=== PATIENT | female | born 1950 | race Two or more races ===

== ENCOUNTER 2025-01-07 19:48 | Inpatient (IN) | payer MEDICARE, BC, SELFPAY ==
[2025-01-07 19:50] VITALS: PULSE 84; RESP 100; RESP 20
--- NOTE | 2025-01-07 19:50 | EKG_ITS ---
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
--- NOTE | 2025-01-07 19:50 | XR_ITS ---
Examination: CTA carotids with intravenous contrast CTA brain, head with intravenous contrast. 2-D sagittal, coronal reconstructions. 3-D reconstructions. Exam date and time: January 07, 2025 1957 hours INDICATIONS: Stroke alert, onset focal neurologic deficit today CTDI: vol (mGy) 11.6 DLP: (mGycm) 450 Technique: Multiple CTA axial brain, head carotid images post intravenous contrast injection 100 cc, Isovue-370. 2-D sagittal, coronal reconstructions. 3-D reconstructions, 3-D post processing including vascular maximum intensity projection images. Low dose protocols were performed. One or more of the following dose reduction techniques were used; automated exposure control, adjustment of the mA and/or KV according to patient size, use of iterative reconstruction technique. Findings: No significant common carotid carotid bifurcation or internal carotid artery stenoses Dominant left vertebral artery in the neck with no critical stenoses Intracranial vertebral arteries, posterior cerebral arteries artery fill with no occlusions Petrous, juxtasellar, supraclinoid portions internal carotid arteries, M1 segments middle cerebral arteries middle cerebral artery trifurcation vessels as well as anterior cerebral arteries fill with no occlusions IMPRESSION: No significant arterial stenoses No cerebral large vessel arterial occlusions or thrombus
--- NOTE | 2025-01-07 19:50 | XR_ITS ---
Examination: CT brain head without contrast. 2-D sagittal coronal reconstructions Date and time of exam:January 07, 20251953 hours Comparison 04/24/2023 INDICATIONS: Stroke alert, onset altered mental status weakness confusion today, history brain tumor CTDI: vol (mGy):46.7 DLP: (mGycm):9 Technique: Multiple CT axial sections of the brain have been obtained, 5 mm slice thickness. Contrast has not been administered. 2-D sagittal, coronal reconstructions have been obtained Low dose protocols were performed. One or more of the following dose reduction techniques were used; automated exposure control, adjustment of the mA and/or KV according to patient size, use of iterative reconstruction technique. Findings: Left occipital craniotomy defect with encephalomalacia left occipital lobe and mild ipsilateral ventricular dilatation No acute hemorrhage or effacement cortical sulcal markings No mass effect IMPRESSION: No interval acute hemorrhage mass effect or midline shift
[2025-01-07 19:55] VITALS: BP 193/84; PULSE 62; RESP 16; O2SAT 99
--- NOTE | 2025-01-07 20:00 | PD.EDNEURO ---
Neuro Symptoms Deficit-RME/HPI General Chief Complaint: Neuro Symptoms/Deficit Stated Complaint: POSSIBLE STROKE Time Seen by Provider: 01/07/25 19:50 Arrival date/time: 01/07/25 19:48 RME / HPI RME / HPI Narrative: Dr. Maier?s Main ED Evaluation: 74yo female with a history of glioblastoma, HTN BIBA from home presents to the ED for a chief complaint of neurological symptoms. Patient was seen by me immediately upon arrival at 1948. Per EMS, patient's LKWT is 1730, at which time patient fell asleep and took a nap. EMS endorses family was checking on the patient and found her to be nonverbal and unable to ambulate. EMS endorses the patient can normally communicate and ambulate normally. Full ROS is unobtainable due to the patient being nonverbal. Related Data Home Medications ?Medication ?Instructions ?Recorded ?Confirmed escitalopram oxalate 10 mg tablet 10 mg PO QDAY 09/24/20 04/25/23 lisinopril 5 mg tablet 5 mg PO QDAY High Blood Pressure 09/24/20 04/25/23 Previous Rx's ?Medication ?Instructions ?Recorded pantoprazole 40 mg granules 40 mg PO QDAY 30 days #30 ea 04/27/23 delayed-release for susp in packet (Protonix) Allergies Allergy/AdvReac Type Severity Reaction Status Date / Time Penicillins Allergy Intermediate Hives Verified 04/24/23 13:34 Review of Systems Review of Systems ROS Unobtainable: unobtainable due to medical condition Past Medical History Past Medical History NEUROLOGIC: Negative Neurological Disorders or Seizures CARDIAC: Positive Hypertension; Negative Cardiac Disorders, Hypercholesterolemia or Congestive Heart Failure RESPIRATORY: Negative Chronic Obstructive Pulmonary Disease (COPD) or Asthma GASTROINTESTINAL: Positive Gastrointestinal Disorders and Gastroesophageal Reflux Disease GENITOURINARY: Negative Genitourinary Disorders or Renal Disease MUSCULOSKELETAL: Negative Musculoskeletal Disorders or Arthritis ENDOCRINE: Negative Endocrine Disorders, Diabetes Mellitus Type 1 or Diabetes Mellitus Type 2 HEMATOLOGIC: Negative Blood Disorders or Sickle Cell Disease PSYCHO/SOCIAL: Positive Depression and Anxiety OTHER HISTORY: Negative Autoimmune Disease, Blood Transfusions, Anesthesia Reactions, Chicken Pox, Measles, Mumps or Cancer Family History FAMILY HISTORY: Positive Family Cardiac Disorders; Negative Family Anesthesia Reaction Surgical History SURGICAL: Positive Tubal Ligation; Negative Cardiac Surgery, Endocrine Surgery, Ear Surgery, Abdominal Surgery, Nephrectomy or Joint Replacement Social History SMOKING STATUS: Never smoker SUBSTANCE USE: does not use 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 HEENT: Normocephalic, atraumatic; pupils equal, round, reactive to light; EOMI; mucous membranes pink, moist; oropharynx clear NECK: Supple LUNGS: CTABL; no wheezes, no rales, no rhonchi HEART: Regular rate, regular rhythm; normal S1, S2; no murmurs ABDOMEN: non distended; normal BS; soft, no tenderness, no guarding, no rebound; no masses, no organomegaly, no hernia BACK: no CVA tenderness EXTREMITIES: atraumatic; no edema NEUROLOGIC: awake; nonverbal; not moving any of her extremities; unable to assess sensory deficits PSYCHIATRIC: appropriate mood and affect SKIN: warm, dry, normal color; no rashes Course Quality Measures none Orders Category Date Time Status Bedside Blood Glucose NOW Care 01/07/25 19:50 Active Ship Rigger Apprentice NOW Care 01/07/25 19:50 Active Continuous Pulse Oximetry NOW Care 01/07/25 19:50 Completed EKG (ED ONLY) *Do not use* NOW Care 01/07/25 19:50 Completed In and Out Catheter NEEDED Care 01/07/25 19:50 Active Insert IV NOW Care 01/07/25 19:50 Active NIH Stroke Scale now Care 01/07/25 19:50 Active NPO NOW Care 01/07/25 19:50 Active Nurse Swallow Screen x1 Care 01/07/25 19:50 Active Consult to Neurology / Tele-Neurology Routine Cons 01/07/25 19:[address] angio stroke protocol Stat Exams 01/07/25 19:[address] stroke protocol Stat Exams 01/07/25 19:50 Completed EKG (ED Only) Stat Exams 01/07/25 19:50 Draft Alcohol, Blood Medical Stat Lab 01/07/25 20:00 Completed CBC Stat Lab 01/07/25 20:00 Completed Comprehensive Metabolic Panel Stat Lab 01/07/25 20:00 Completed Drug Screen,Urine Stat Lab 01/07/25 20:31 Completed Magnesium Stat Lab 01/07/25 20:00 Completed Partial Thromboplastin Time Stat Lab 01/07/25 20:00 Completed Prothrombin Time with INR Stat Lab 01/07/25 20:00 Completed Troponin I Stat Lab 01/07/25 20:00 Completed Urinalysis Stat Lab 01/07/25 20:31 Completed Urine Culture Stat Lab 01/07/25 20:31 Received Aspirin Supp Med 01/07/25 21:47 Discontinued 300 mg NH X1 ONE cefTRIAXone/D5w 1gm IV premix [Rocephin/D5w 1gm IV Med 01/07/25 21:18 Discontinued premix] 1 gm in 50 ml IV X1 levETIRAcetam INJ [Keppra Inj] Med 01/07/25 20:21 Discontinued 1,000 mg IVP X1 ONE Oxygen Delivery NOW RT 01/07/25 19:50 Active Vital Signs Vital signs: Vital Signs Pulse Rate 84 01/07/25 19:50 Respiratory Rate 20 01/07/25 19:50 Neuro Symptoms / Deficit MDM Narrative MDM Narrative:: Scribe Attestation: 01/07/25 - Ander, Kortney Maier, am scribing for and in the presence of Dr. Maier. I saw the patient at 1948. Patient was immediately sent to CT. 2010: Patient is AAO to self and follows commands. No motor deficits noted, but I am unable to assess sensory deficits. Unable to completely participate in the exam, but seems to be coming to her senses. 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 He states the patient is on Keppra 500mg BID. 2019: Discussed case with Dr. Steve from teleneurology regarding consultation. Discussed patients ED course, exam findings, labs, and radiology results. Does not recommend tPA due to the patient having a glioblastoma and having rapidly resolving symptoms. Feels the patient may have been postictal. 7: Discussed case with Dr. Steve from teleneurology regarding consultation. Recommends aspirin at this time. States the CTA is negative for LVO. Recommends admitting the patient for MRI and EEG. 2220: On re-examination, patient has expressive aphasia and is now more awake. 2222: Discussed case with the resident physician, attending Dr. Roman from Hospitalist service regarding admission. Discussed patients ED course, exam findings, labs, and radiology results. The Hospitalist agrees to accept the patient for admission. Patient data External records reviewed:: [facility] previous records (Per chart review, patient was admitted here on 04/24/23 for acute CVA.) Clinical information provided by:: EMS Social determinants that could affect healthcare access:: none Patient has the following chronic illnesses:: glioblastoma, HTN How is presenting disease/condition affected by chronic disease/condition?: uneffected by Evaluation data The following diagnostics were reviewed and interpreted by me:: lab results, radiology exam(s) and EKG tracing(s) Lab and/or radiology exams considered but not ordered:: none Interpretation Summary: CBC normal, PT/INR/PTT normal, CMP normal, UA positive for UTI, UDS and Blood Alcohol negative. EKG done at 2038, sinus bradycardia, rate of 59, normal axis, no ectopy, no acute ischemia, according to my interpretation. [place] [facility] Report Signed Patient: EULOGIO FLETCHER Record#: [id number] Birthdate: 1950 Age/Sex: 74 / F Location: [facility] Attending Dr: Ordering Physician: Ravin Maier MD Date of Service: 01/07/25 Procedure(s): CT stroke protocol Accession Number(s): [id number] cc: Ugo Georges MD; Ravin Maier MD~ Examination: CT brain head without contrast. 2-D sagittal coronal reconstructions Date and time of exam:January 07, 20251953 hours Comparison 04/24/2023 INDICATIONS: Stroke alert, onset altered mental status weakness confusion today, history brain tumor CTDI: vol (mGy):46.7 DLP: (mGycm):9 Technique: Multiple CT axial sections of the brain have been obtained, 5 mm slice thickness. Contrast has not been administered. 2-D sagittal, coronal reconstructions have been obtained Low dose protocols were performed. One or more of the following dose reduction techniques were used; automated exposure control, adjustment of the mA and/or KV according to patient size, use of iterative reconstruction technique. Findings: Left occipital craniotomy defect with encephalomalacia left occipital lobe and mild ipsilateral ventricular dilatation No acute hemorrhage or effacement cortical sulcal markings No mass effect IMPRESSION: No interval acute hemorrhage mass effect or midline shift Dictated By: Ugo Georges MD Signed By: <Electronically signed by Ugo Georges MD in OV> 01/07/251958 [place] [facility] Report Signed Patient: EULOGIO FLETCHER Record#: [id number] Birthdate: 1950 Age/Sex: 74 / F [facility] Attending Dr: Ordering Physician: Ravin Maier MD Date of Service: 01/07/25 Procedure(s): CT angio stroke protocol Accession Number(s): [id number] cc: Ugo Georges MD; Ravin Maier MD~ Examination: CTA carotids with intravenous contrast CTA brain, head with intravenous contrast. 2-D sagittal, coronal reconstructions. 3-D reconstructions. Exam date and time: January 07, 20251956 hours INDICATIONS: Stroke alert, onset focal neurologic deficit today CTDI: vol (mGy) 11.6 DLP: (mGycm) 450 Technique: Multiple CTA axial brain, head carotid images post intravenous contrast injection 100 cc, Isovue-370. 2-D sagittal, coronal reconstructions. 3-D reconstructions, 3-D post processing including vascular maximum intensity projection images. Low dose protocols were performed. One or more of the following dose reduction techniques were used; automated exposure control, adjustment of the mA and/or KV according to patient size, use of iterative reconstruction technique. Findings: No significant common carotid carotid bifurcation or internal carotid artery stenoses Dominant left vertebral artery in the neck with no critical stenoses Intracranial vertebral arteries, posterior cerebral arteries artery fill with no occlusions Petrous, juxtasellar, supraclinoid portions internal carotid arteries, M1 segments middle cerebral arteries middle cerebral artery trifurcation vessels as well as anterior cerebral arteries fill with no occlusions IMPRESSION: No significant arterial stenoses No cerebral large vessel arterial occlusions or thrombus Dictated By: Ugo Georges MD Signed By: <Electronically signed by Ugo Georges MD in OV> 01/07/252109 Medications / Prescriptions Medications or Prescriptions considered but not ordered:: none Medication administrations:: Medication Administration History Discontinued Medications Aspirin (Aspirin 300 Mg Supp) 300 mg NH X1 ONE Stop: 01/07/25 21:48 Ceftriaxone Sodium/Dextrose (Rocephin/D5w 1gm Iv Premix) 1 gm in 50 mls @ 100 mls/hr IV X1 ONE Stop: 01/07/25 21:47 Last Infusion: 01/07/25 22:18 Dose: Infused Documented By: Admin: 01/07/25 21:48 Dose: 100 mls/hr Documented By: ER Levetiracetam (Levetiracetam Inj 100 Mg/Ml Vial 5ml) 1,000 mg IVP X1 ONE Stop: 01/07/25 20:22 Last Admin: 01/07/25 21:06 Dose: 1,000 mg Documented By: ER see above Consultations Consultation(s) initiated? (list below): Yes Diagnosis Neuro Differential Diagnosis: other (ICH, hemorrhagic CVA, ischemic CVA, postictal with unseen seizure, AMS) Most likely diagnosis given after review of the tests above:: CVA Admission Indicated Admission indicated?: indicated Admission Request Was there a request for admission?: Yes Admission Attestation Admission request attestation: Discussed case with [] from Hospitalist service regarding admission. Discussed patients ED course, exam findings, labs, and radiology results. The Hospitalist [agrees,declines] to accept the patient for admission. Disposition Plan Disposition Plan: Admit Critical Care Time Critical Care Time Critical Care Time: Yes Total Critical Care Time (min.): 50 Attestation: The high probability of sudden, clinically significant deterioration in the patient?s condition required the highest level of my preparedness to intervene urgently. The services I provided to this patient were to treat and/or prevent clinically significant deterioration. Services included the following: chart data review, reviewing nursing notes and/or old charts, documentation time, legal consultant collaboration regarding findings and treatment options, medication orders and management, direct patient care, vital sign assessments and ordering, interpreting and reviewing diagnostic studies and lab tests. Aggregate critical care time includes only time during which I was engaged in work directly related to the patient?s care, as described above, whether at bedside or elsewhere in the Emergency Department. It did not include time spent performing other reported procedures or the services of residents, students, nurses or physician assistants. Discharge Plan Plan Patient Disposition: Admit Acute Care w/in Hospital Prescriptions/Referrals Prescriptions/Med Rec: No Action lisinopril 5 mg tablet 5 mg PO QDAY Patient Comments: TAKE 1 TABLET BY MOUTH EVERY DAY escitalopram oxalate 10 mg tablet 10 mg PO QDAY Patient Comments: TAKE 1 TABLET BY MOUTH EVERY DAY pantoprazole [Protonix] [address] for susp in packet 40 mg PO QDAY 30 Days Qty: 30 1RF Referrals: Evelio Tineo MD [Primary Care Provider] - In 1 week Problem List Clinical Impression: Acute cerebrovascular accident (CVA) Patient/Caregiver Discharge Instructions Print Language: Nicaraguan Stand Alone Forms: [facility] Award Info., Patient Portal Info Letter
[2025-01-07 20:12] VITALS: BP 171/78; PULSE 64; RESP 18; TEMP 36.4; O2SAT 97
[2025-01-07 20:19] LABS: Basophils % (Auto) 1 % (0-2.5); Eosinophils % (Auto) 1 % (0-10); Hematocrit 37.7 % (36.0-46.0); Hemoglobin 12.4 g/dL (12.0-16.0); Immature Granulocytes % (Auto) 0 % (0-0); Immature Granulocytes Auto 0.02 Thou/mm3 (0.00-0.00); Lymphocytes # (Auto) 0.6 Thou/mm3 (1.0-4.8); Lymphocytes % (Auto) 12 % (10-50); Mean Corpuscular HGB Conc 32.9 g/dl (31.0-37.0); Mean Corpuscular Hemoglobin 28.7 pg (25.0-35.0); Mean Corpuscular Volume 87 fL (80-100); Monocytes # (Auto) 0.3 Thou/mm3 (0.0-0.8); Monocytes % (Auto) 6 % (0-12); Neutrophils # (Auto) 4.4 Thou/mm3 (1.8-7.7); Neutrophils % (Auto) 81 % (37-80); Nucleated Red Blood Cell % 0 /100 WBC (0); Platelet Count 165 Thou/mm3 (140-440); RDW Standard Deviation 45.1 fL (36.4-46.3); Red Blood Count 4.32 Miln/mm3 (4.00-5.20); White Blood Count 5.4 Thou/mm3 (3.6-11.0)
--- NOTE | 2025-01-07 20:24 | ESCONSULT_ITS ---
Tele Neuro Consultation Consultation Date 01/07/25 Most Recent Vital Signs Last Vital Signs Pulse 84 01/07/25 19:50 Resp 20 01/07/25 19:50 Consultation Narrative [facility] Tele[facility]urology Consult Services Patient Name:???Lindy King Date of :???1950 Identification Number:??? Date of Service:???01/07/2025 19:48:07 Diagnosis:?R47.01 - Aphasia Impression: ?74-year-old female With history of reported Left occipital intraparenchymal brain tumor (Reportedly glioblastoma), depression, anxiety, History of seizure disorder, On Keppra 500 mg twice dailywho apparently was in her usual state of health when she took a nap earlier today and upon awakening, patient was nonverbal, unable to ambulate.. EMS question some left-sided weakness initially.No seizure activity was noted. ?Examination reveals patient is awake, globally aphasic, does not follow commands well, no comprehensible speech but may have some vocal utterances. There is questionable left facial asymmetry. No obvious focal drift in either arm or leg. NIHSS = 8. CT head reveals no bleed or acute findings. Postoperative changes and encephalomalacia in left occipital region from possible brain tumor resection. We will proceed with stat CTA of head and neck and involve JARVIS if there is LVO. ?Evaluate for possible acute CVA, but also suspect this could have been an unwitnessed seizure with postictal state as potential cause for her presentation. Suggest further evaluation and management ? ?Addendum: Reportedly patient is starting to improve significantly beginning to speak , according to ER physician after I saw her. Our recommendations are outlined below. Recommendations: ? Stroke/Telemetry Floor ? Neuro Checks (Q2) ? Bedside Swallow Eval ? DVT Prophylaxis ? IV Fluids, Normal Saline ? Head of Bed 30 Degrees ? Euglycemia and Avoid Hyperthermia (PRN Acetaminophen) ? Initiate or continue Aspirin 325 MG daily ? Antihypertensives PRN if Blood pressure is greater than 220/120 or there is a concern for End organ damage/contraindications for permissive HTN. If blood pressure is greater than 220/120 give labetalol PO or IV or Vasotec IV with a goal of 15% reduction in BP during the first 24 hours. ?Stroke risk factor modification ?Stroke education. ?Suggest MRI brain to evaluate for possible CVA ?Suggest EEG ?Seizure precaution. ?Keppra 1 g IV now ordered. ?Suggest increasing Keppra to 1 g IV every 12 hours for now given concern for possibility of unwitnessed seizure. Sign Out: ? Discussed with Emergency Department Provider Metrics: Last Known Well: 01/07/2025 17:30:00 Dispatch Time: 01/07/2025 19:48:06 Arrival Time: 01/07/2025 19:50:00 Initial Response Time: 01/07/2025 19:51:18Symptoms: woke from nap, nonverbal, unable to ambulate , left weakness ?. Initial patient interaction: 01/07/2025 19:56:46 NIHSS Assessment Completed: 01/07/2025 20:04:45Patient is not a candidate for Thrombolytic. Thrombolytic Medical Decision: 01/07/2025 20:04:45Patient was not deemed candidate for Thrombolytic because of following reasons: History of previous intracranial hemorrhage, intracranial neoplasm . CT Head: I personally reviewed all the CT images that were available to me and it showed: No bleed or acute abnormalities. Left occipital craniotomy defect with encephalomalacia in left occipital lobe. History of Present Illness:Patient is a 74 year old Female. Patient was brought by EMS for symptoms of woke from nap, nonverbal, unable to ambulate , left weakness ?. 74-year-old female With history of reported Left occipital intraparenchymal brain tumor (Reportedly glioblastoma), depression, anxiety, History of seizure disorder, on Keppra 500 mg twice dailywho apparently was in her usual state of health when she took a nap earlier today and upon awakening, patient was nonverbal, unable to ambulate.. EMS question some left-sided weakness initially.No seizure activity was noted. ? Past Medical History: ?Seizures Other PMH:? Brain tumor, depression, anxiety, History of GERD Medications: No Anticoagulant use? No Antiplatelet use Reviewed EMR for current medications Other Medications Pertinent To Assessment Include: Lisinopril, Lexapro. Keppra 500 mg twice daily. Further medication list not available at this time ? Allergies:? Reviewed,NKDA Description:?PCN Social History: Smoking: No Alcohol Use: No Drug Use: No Family History: There Is Family History Of:ND There is no family history of premature cerebrovascular disease pertinent to this consultation ROS : 14 Points Review of Systems was performed and was negative except mentioned in HPI. Past Surgical History: There Is No Surgical History Contributory To Today?s Visit ? Examination: BP(172/124),?Pulse(64),?Blood Glucose(138) 1A: Level of Consciousness - Alert; keenly responsive?+ 0 1B: Ask Month and Age - Aphasic?+ 2 1C: Blink Eyes & Squeeze Hands - Performs 0 Tasks?+ 2 2: Test Horizontal Extraocular Movements - Normal?+ 0 3: Test Visual Altman - No Visual Loss?+ 0 4: Test Facial Palsy (Use Grimace if Obtunded) - Minor paralysis (flat nasolabial fold, smile asymmetry)?+ 1 5A: Test Left Arm Motor Drift - No Drift for 10 Seconds?+ 0 5B: Test Right Arm Motor Drift - No Drift for 10 Seconds?+ 0 6A: Test Left Leg Motor Drift - No Drift for 5 Seconds?+ 0 6B: Test Right Leg Motor Drift - No Drift for 5 Seconds?+ 0 7: Test Limb Ataxia (FNF/Heel-Warren) - No Ataxia?+ 0 8: Test Sensation - Normal; No sensory loss?+ 0 9: Test Language/Aphasia - Severe Aphasia: Fragmentary Expression, Inference Needed, Cannot Identify Materials?+ 2 10: Test Dysarthria - Mild-Moderate Dysarthria: Slurring but can be understood?+ 1 11: Test Extinction/Inattention - No abnormality?+ 0 NIHSS Score:?8 Pre-Morbid Modified [place] Scale:Unable to assess This consult was conducted in real time using interactive audio and video technology. Patient was informed of the technology being used for this visit and agreed to proceed. Patient located in hospital and provider located at home/office setting. Patient is being evaluated for possible acute neurologic impairment and high probability of imminent or life-threatening deterioration. I spent total of minutes providing care to this patient, including time for face to face visit via telemedicine, review of medical records, imaging studies and discussion of findings with providers, the patient and/or family. Dr Candido Steve [facility] For Inpatient follow-up with [facility] physician please call [facility] at . As we are not an outpatient service for any post hospital discharge needs please contact the hospital for assistance. If you have any questions for the [facility] physicians or need to recons ult for clinical or diagnostic changes please contact us via [facility] at .
[2025-01-07 20:28] LABS: Partial Thromboplastin Time 28.1 Seconds (22.0-36.0); Prothrombin Time 10.9 Seconds (9.0-12.2)
[2025-01-07 20:33] LABS: Alanine Aminotransferase 15 U/L (10-49); Albumin, Serum 4.4 gm/dL (3.4-4.8); Albumin/Globulin Ratio 1.6 (1.2-2.2); Alcohol, Blood Medical < 3.0 mg/dL (0-10.0); Alkaline Phosphatase 145 U/L (46-116); Anion Gap 11 (7-16); Aspartate Amino Transferase 21 U/L (0-34); BUN/Creatinine Ratio 19 Ratio (12-20); Bilirubin,Total 0.4 mg/dL (0.3-1.2); Blood Urea Nitrogen 15 mg/dL (9-23); Calcium 9.6 mg/dL (8.3-10.6); Calcium (Corrected) 9.6 mg/dL (8.5-10.1); Carbon Dioxide 24.2 mMol/L (20.0-31.0); Chloride 103 mMol/L (98-107); Creatinine (Component) 0.8 mg/dL (0.6-1.3); Globulin 2.8 gm/dL (2.3-3.5); Glucose 154 mg/dL (74-106); Magnesium 2.1 mg/dL (1.6-2.6); Osmolality,Calculated 279 (275-295); Potassium 3.9 mMol/L (3.4-5.1); Sodium 138 mMol/L (136-145); Total Protein 7.2 gm/dL (5.7-8.2); Troponin I < 0.020 ng/mL (0.0-0.045); eGFR > 60 See Note
[2025-01-07 20:34] VITALS: PULSE 64; RESP 18; O2SAT 99; BMI 32.3
--- NOTE | 2025-01-07 20:55 | PC.NURSE ---
Patient BIBA due to patient was nonverbal, unsteady after taking a nap on couch at 1730. heard her grunting, and noted that patient had vomited and was aphasic. Patient has hx of SZ, HTN, and Bar tumor. Stroke alert was called and Tele neurologist Dr. Steve assessed patient.
[2025-01-07 20:58] LABS: Collection Type, Urine Catheter
[2025-01-07 21:00] VITALS: BP 152/65; PULSE 63; RESP 18; O2SAT 98
[2025-01-07] MEDS: levETIRAcetam INJ 100 MG/ML VIAL 5ML 1000 MG IVP (21:06)
[2025-01-07 21:07] LABS: Bacteria,Urine Rare; Bilirubin,Urine Negative (Negative); Blood,Urine Negative (Negative); Clarity,Urine Clear (Clear/Hazy); Color,Urine Colorless (Lt Yel-Yel); Glucose, Urine Negative (Negative); Ketones,Urine Trace (Negative); Leukocyte Esterase,Urine Positive (Negative); Nitrite,Urine Negative (Negative); PH,Urine 7.5 (5.0-7.0); Protein,Urine Negative (Neg - Trace); RBC,Urine 4 /hpf (0-3); Specific Gravity,Urine 1.032 (1.001-1.035); Squamous Epithelial Cell,Urine 5 /hpf (0-5); Urobilinogen,Urine Negative mg/dL (0.0-1.0); WBC,Urine 81 /hpf (0-5)
[2025-01-07 21:09] LABS: Sperm,Urine Present
[2025-01-07 21:35] LABS: Amphetamine/Methamp Scrn,U Negative (Negative); Barbiturate Screen,Urine Negative (Negative); Benzodiazepines Screen,Urine Negative (Negative); Benzoylecgonine Screen, Ur Negative (Negative); Fentanyl Screen,Urine Negative (Negative); Opiate Screen,Urine Negative (Negative); THC Screen,Urine Negative (Negative)
[2025-01-07] MEDS: cefTRIAXone/D5w 1gm IV premix 1 GM/50 ML BAG IV (21:48)
[2025-01-07 22:00] VITALS: BP 134/64; PULSE 64; RESP 18; O2SAT 100
[2025-01-07] MEDS: ASPIRIN 300 MG SUPP PR (22:52)
--- NOTE | 2025-01-07 22:56 | ECHO_ITS ---
Transthoracic Echo Report Ht (in): 60 Wt (lb): 165 Exam Location: Echo Lab Status: Emergency Belt Builder: Olga Lidia Ochoa Indications: Procedure Performed: BP: 161 / 82 HR: 70 Technical Quality: Technically Difficult Study MEASUREMENTS (Male / Female) Normal Values 2D ECHO LV Diastolic Diameter PLAX 3.6 cm 4.2 - 5.9 / 3.9 - 5.3 cm LV Systolic Diameter PLAX 2.3 cm IVS Diastolic Thickness 0.8 cm 0.6 - 1.0 / 0.6 - 0.9 cm LVPW Diastolic Thickness 1.0 cm 0.6 - 1.0 / 0.6 - 0.9 cm LV Relative Wall Thickness 0.5 LVOT Diameter 2.1 cm Ascending Aorta Diameter 3.3 cm DOPPLER AV Peak Velocity 120.0 cm/s AV Peak Gradient 5.8 mmHg LVOT Peak Velocity 93.1 cm/s LVOT Peak Gradient 3.5 mmHg AV Area Cont Eq pk 2.7 cm? MV Area PHT 3.7 cm? Mitral E Point Velocity 72.8 cm/s Mitral A Point Velocity 78.1 cm/s Mitral E to A Ratio 0.9 LV E' Lateral Velocity 7.1 cm/s Mitral E to LV E' Lateral Ratio 10.3 LV E' Septal Velocity 6.5 cm/s Mitral E to LV E' Septal Ratio 11.1 TR Peak Velocity 236.0 cm/s TR Peak Gradient 22.3 mmHg PV Peak Velocity 116.0 cm/s PV Peak Gradient 5.4 mmHg FINDINGS Left Ventricle Normal left ventricular size, wall thickness, systolic function with no obvious regional wall motion abnormalities. Normal left ventricular diastolic filling pattern for age. The ejection fraction is visually estimated at 60 %. Right Ventricle The right ventricle is normal in size and systolic function. The estimated right ventricular systolic pressure, 22 mmHg. Left Atrium Left atrium not well visualized. Right Atrium Right atrium is not well visualized. Atrial Septum The interatrial septum appears normal with no evidence of a shunt. Aorta The aorta is normal by two-dimensional, color flow and Doppler interrogation. Mitral Valve Mild thickening of the mitral valve leaflets. Trace mitral regurgitation. Aortic Valve Aortic valve sclerosis. There is no significant aortic valve regurgitation. Tricuspid Valve The tricuspid valve is normal by two-dimensional, color flow and Doppler interrogation. There is trace tricuspid valve regurgitation. Pulmonic Valve The pulmonic valve is not well visualized. There is no significant pulmonic valve regurgitation. Vessels The pulmonary artery appears normal. The inferior vena cava pulmonary and hepatic veins appear normal. Pericardium The pericardium is normal by two-dimensional imaging. There is no significant pericardial effusion. CONCLUSIONS Indication: R/O Stroke Bubble study negative for any PFO or ASD. Consider LALITHA if high clinical index of suspicion. Normal LV size and function with an estimated EF of 60 to 65%. Grade 1 diastolic dysfunction. Normal RV size and function. Etimated RVSP is 22 mmHg. Trace MR and TR. Mild thickening of the MV and mild aortic valve sclerosis without stenosis. Andrea Cruz (Electronically Signed) Final Date: 08 January 2025 18:28
--- NOTE | 2025-01-07 23:01 | ESHP_ITS ---
Documentation for date of: 01/07/25 HPI History of Present Illness Chief complaint: nonverbal History of present illness: 74-year-old female with past medical history of left occipital intraparenchymal brain tumor (supposedly glioblastoma s/p resection), depression, anxiety, seizures, and hypertension was admitted to the hospital on 01/07/2025 to come to the ED brought in by ambulance due to being nonverbal and unable to ambulate properly. Patient's son was at bedside providing most of the history given that patient was very confused and was having trouble understanding questions being asked. Patient's son stated that his father called him today because patient took a nap after she took a nap she woke up and vomited a little bit and was nonverbal and not following too many structures. At this time they called the ambulance given there is new neurological deficits. Patient's son stated that patient at baseline is able to communicate entirely and totally coherent and independent. He mentioned that yesterday patient also had an episode of vomit after she came back from [facility], but she did not complain of any abdominal pain, fevers, chills or anything like that previously. He also mentioned that today prior to her going to take a nap patient did complain of a headache. He also stated that they did not witness any seizure-like activity. On assessment patient was following some instructions, but was not able to answer questions and answer with inappropriate answers to the questions asked if she was having receptive aphasia. ED course: Initially came in hypertensive and afebrile. Initial labs were unremarkable other than UA positive for bacteria. Initial imaging included head CT which did not show any hemorrhage, mass effect, or midline shift, but that show left occipital craniotomy defect with encephalomalacia. Head/neck CTA was unremarkable, and EKG did not show any acute ST changes. Teleneurology was consulted in the ED a stroke alert was called and stated to admit the patient for possible CVA versus seizure. They recommended to start the patient on aspirin and to start patient on Keppra as well. PMH: As above Social Hx: Does not do any alcohol, smoke, or drugs Surgical Hx: glioblastoma resection Review of Systems Review of Systems ROS Unobtainable: unobtainable due to mental status and unobtainable due to medical condition Past Medical History Past Medical History NEUROLOGIC: Negative Neurological Disorders or Seizures CARDIAC: Positive Hypertension; Negative Cardiac Disorders, Hypercholesterolemia or Congestive Heart Failure RESPIRATORY: Negative Chronic Obstructive Pulmonary Disease (COPD) or Asthma GASTROINTESTINAL: Positive Gastrointestinal Disorders and Gastroesophageal Reflux Disease GENITOURINARY: Negative Genitourinary Disorders or Renal Disease MUSCULOSKELETAL: Negative Musculoskeletal Disorders or Arthritis ENDOCRINE: Negative Endocrine Disorders, Diabetes Mellitus Type 1 or Diabetes Mellitus Type 2 HEMATOLOGIC: Negative Blood Disorders or Sickle Cell Disease PSYCHO/SOCIAL: Positive Depression and Anxiety OTHER HISTORY: Negative Autoimmune Disease, Blood Transfusions, Anesthesia Reactions, Chicken Pox, Measles, Mumps or Cancer Family History FAMILY HISTORY: Positive Family Cardiac Disorders; Negative Family Anesthesia Reaction Surgical History SURGICAL: Positive Tubal Ligation; Negative Cardiac Surgery, Endocrine Surgery, Ear Surgery, Abdominal Surgery, Nephrectomy or Joint Replacement Social History SMOKING STATUS: Never smoker SUBSTANCE USE: does not use 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 Anicteric, vision grossly intact. Ears: No ear discharge, Hearing grossly intact. Nose: No nasal discharge. Mouth/Throat: Moist mucous membranes, no redness, no lesions. Neck: Neck supple, non-tender, no cervical lymphadenopathy. Lungs: Clear NANCY to auscultation and percussion, No accessory muscle use. Cardio: Normal S1/S2, regular rhythm, no murmurs, no JVD Abdomen: Soft, non-tender, no palpable masses, peristalsis present, no guarding or rebound. Extremities: Symmetrical, no significant deformities, no peripheral edema , non-tender, peripheral pulses presents. Skin: No rashes, no lesions, warm to touch. Neuro: Limited due to patient's current mental status. Patient was able to follow commands, did have some receptive aphasia, was speaking fluently, but not coherent. Moving all extremities. Results: Labs 01/07/25 20:00 01/07/25 20:00 Labs: Short CBC 01/07/25 Range/Units 20:00 WBC 5.4 (3.6-11.0) Thou/mm3 Hgb 12.4 (12.0-16.0) g/dL Hct 37.7 (36.0-46.0) % Plt Count 165 (140-440) Thou/mm3 BMP 01/07/25 20:00 Sodium 138 Potassium 3.9 Chloride 103 Carbon Dioxide 24.2 BUN 15 Creatinine 0.8 Glucose 154 H Calcium 9.6 Cardiac Enzymes 01/07/25 Range/Units 20:00 Troponin I < 0.020 (0.0-0.045) ng/mL Liver Function 01/07/25 Range/Units 20:00 Total Bilirubin 0.4 (0.3-1.2) mg/dL AST 21 (0-34) U/L ALT 15 (10-49) U/L Alkaline Phosphatase 145 H (46-116) U/L Albumin 4.4 (3.4-4.8) gm/dL Urine 01/07/25 Range/Units 20:31 Urine Color Colorless A (Lt Yel-Yel) Urine Clarity Clear (Clear/Hazy) Urine pH 7.5 H (5.0-7.0) Ur Specific [place] 1.032 (1.001-1.035) Urine Protein Negative (Neg - Trace) Urine Glucose (UA) Negative (Negative) Quality Measures Quality Measures none Advance care planning discussed with:: patient and child Medications Home Medications and Allergies Home Medications ?Medication ?Instructions ?Recorded ?Confirmed ?Type escitalopram oxalate 10 mg tablet 10 mg PO QDAY 01/08/25 History lisinopril 5 mg tablet 5 mg PO QDAY High Blood Pres sure 09/24/20 01/08/25 History levetiracetam 500 mg tablet 500 mg PO BID 01/08/2510/03 History omeprazole 20 mg capsule,delayed 20 mg PO QDAY 5 01/08/25 History release Allergies Allergy/AdvReac Type Severity Reaction Status Date / Time Penicillins Allergy Intermediate Hives Verified 04/24/23 13:34 Visit Medications Acetaminophen (Acetaminophen 325 Mg Tablet) 650 mg PO Q6H PRN PRN Reason: pain and Fever >100.4 Stop: 02/06/25 22:52 Aspirin (Aspirin Ec 81 Mg Tabec) 81 mg PO QDAY DOUGIE Stop: 02/07/25 08:59 Atorvastatin Calcium (Atorvastatin Calcium 20 Mg Tablet) 40 mg PO HS DOUGIE Stop: 02/07/25 20:59 Heparin Sodium (Porcine) (Heparin Sod Inj 5000 Unit/Ml Vial) 5,000 unit SC Q8HR DOUGIE Stop: 01/21/25 22:59 Ondansetron HCl (Ondansetron Inj 2 Mg/Ml Inj 2 Ml) 4 mg IVP Q6H PRN; Protocol PRN Reason: NAUSEA OR VOMITING Stop: 02/06/25 22:52 Pantoprazole Sodium (Pantoprazole Inj 40 Mg Vial) 40 mg IVP QDAY DOUGIE Stop: 02/07/25 08:59 Discontinued Medications Aspirin (Aspirin 300 Mg Supp) 300 mg OH X1 ONE Stop: 01/07/25 21:48 Last Admin: 01/07/25 22:52 Dose: 300 mg Ceftriaxone Sodium/Dextrose (Rocephin/D5w 1gm Iv Premix) 1 gm in 50 mls @ 100 mls/hr IV X1 ONE Stop: 01/07/25 21:47 Last Infusion: 01/07/25 22:18 Dose: Infused Levetiracetam (Levetiracetam Inj 100 Mg/Ml Vial 5ml) 1,000 mg IVP X1 ONE Stop: 01/07/25 20:22 Last Admin: 01/07/25 21:06 Dose: 1,000 mg Assessment & Plan Plan 74-year-old female with past medical history of left occipital intraparenchymal brain tumor (supposedly glioblastoma s/p resection), depression, anxiety, seizures, and hypertension was admitted to the hospital on 01/07/2025 for receptive aphasia and acute encephalopathy as well as stroke rule out. #Stroke: #Receptive aphasia #Acute encephalopathy #Possible seizure #Hx of seizures #Hx of glioblastoma s/p resection Patient was brought in after she had an episode of being nonverbal after taking a nap and found to have vomit afterwards ?DDx TIA versus stroke versus seizure versus Figueroa's paralysis less likely ?NIHSS score 8 ?CTA head and neck negative ?CT head negative for hemorrhage or mass effect ?Teleneuro consulted and advised aspirin, MRI, EEG, Keppra No tPA due to previous brain tumor Plan: MRI stroke protocol, EEG, and echo ordered Continue aspirin and atorvastatin IV fluids Keppra 1 mg twice daily ?Neurochecks every hours ?Allow permissive hypertension ?Head of bed elevation to 30 degrees ?Aspiration precautions -Consult in-hospital neurology, appreciate recommendations -Referred to speech and physical therapy Chronic diseases: #Hx of depression #Hx of anxiety #Hx of hypertension Allowing permissive hypertension for now Disposition: Patient admitted to telemetry for stroke rule out . Diet: NPO GI prophylaxis: protonix DVT prophylaxis: heparin sub cu Code: FULL Case disclosed with Attending Dr. Abel Casillas PGY1 Disclaimer: Even though this this note was dictated by speech recognition and even though it was carefully revised there may still be minor errors in patient financial representative due to voice recognition software. Attending Provider Attestation/Addendum I have examined the patient, reviewed labs and imaging findings, discussed the case with the resident(s), and reviewed entered orders. I agree with the plan of care as outlined in this note, with these additional summaries/recommendations: After examination of the patient and review of the clinical data, I feel that this patient needs admission to the hospital for further treatment and evaluation. Patient is a 74-year-old female with a medical history of primary hypertension, hyperlipidemia, depression/anxiety, GERD, seizure disorder, left occipital intraparenchymal brain tumor (reportedly glioblastoma) status post resection in 2002 presents to [facility] emergency department on 01/07/2025 with chief complaints of nonverbal and unable to ambulate. Patient and son seen at bedside Per son patient was in her usual state of health earlier in the day and took a nap and upon waking she was nonverbal and unable to ambulate. At bedside patient has severe aphasia and responding to every question with ?Its April?. Per son at baseline patient is alert and oriented x 3 and able to ambulate. Stroke alert was called in the emergency department. NIHSS score of 8. CT head without contrast showed no interval acute hemorrhage, mass effect or midline shift but did show left occipital craniotomy defect with encephalomalacia in the left occipital lobe and mild ipsilateral ventricular dilation. CTA head and neck obtained with no LVO or significant arterial stenosis. Patient will be admitted for likely acute CVA. Teleneurology recommends MRI, EEG, seizure precautions, and aspirin 325 mg p.o. daily. Patient does not appear postictal to me at this time although given that she was sleeping we will increase Keppra to 1 g IV every 12 hours for now per teleneurology recommendations. Consult in-house neurology. Order risk factor stratification with A1c, TSH, and lipid panel. Start high intensity statin. Order physical therapy and speech therapy referral. We will allow permissive hypertension for now up to 220 systolically. Urinalysis shows possible UTI although I am not impressed with rare bacteria. Urine culture was taken in the ED and patient received 1 dose of IV Rocephin. We will defer additional antibiotics for now and follow-up urine culture when available. Patient and son updated on the plan at bedside and in agreement. All questions answered to satisfaction. Please see residents note for additional details and management. Dr. Abel MD
[2025-01-07] MEDS: HEPARIN SOD INJ 5000 UNIT/ML VIAL SC (23:44)
[2025-01-07] MEDS: SODIUM CHLORIDE 0.9% 1000 ML 1,000 ML 75 ML IV (23:44)
[2025-01-08] VITALS (9 sets, daily range): BP systolic 134–161; BP diastolic 75–91; PULSE 62–89; RESP 12–98; TEMP 36.1–37.3; O2SAT 95–99; BMI 29.2
--- NOTE | 2025-01-08 | XR_ITS ---
Examinations: MRI Brain without intravenous contrast. MRA brain without intravenous contrast. MRA carotids without intravenous contrast 3-D vascular reconstructions Date and time of exam: And second 2024 6005 hours INDICATIONS: Stroke alert yesterday, onset focal neurologic deficit, history brain tumor Technique: Multiple axial and sagittal images of the brain have been obtained MRA brain carotid images without contrast obtained, including 3-D postprocessing, vascular maximum intensity projection images Findings: [place] is not enlarged. The optic chiasm and infundibular stalk are not remarkable. Prepontine and interpeduncular cisterns are not enlarged. No localized enlargement of the medulla or juliocesar. Fourth ventricle and cerebellar tonsils normal in position. Subacute hemorrhage is not seen. Fourth ventricle is midline. Mass in the cerebellopontine angle region is not evident. 7th and 8th nerve complexes exhibits symmetry. Globes are symmetrical with no retro-orbital mass. Increased white matter signal evident, old infarct left occipital lobe Diffusion-weighted images demonstrate no focus of restricted diffusion Mass-effect upon the ventricular system is not identified. MRA carotid images degraded by patient motion. MRA brain images no large vessel occlusions Impression: Negative for acute hemorrhage mass effect or midline shift. 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
--- NOTE | 2025-01-08 04:30 | RESP.EEG ---
EEG COMPLETED AND READY FOR REVIEW.
[2025-01-08] MEDS: HEPARIN SOD INJ 5000 UNIT/ML VIAL SC ×3 (05:25→21:25)
[2025-01-08 05:50] LABS: Basophils % (Auto) 1 % (0-2.5); Eosinophils % (Auto) 0 % (0-10); Hematocrit 37.4 % (36.0-46.0); Hemoglobin 12.5 g/dL (12.0-16.0); Immature Granulocytes % (Auto) 0 % (0-0); Immature Granulocytes Auto 0.02 Thou/mm3 (0.00-0.00); Lymphocytes # (Auto) 0.8 Thou/mm3 (1.0-4.8); Lymphocytes % (Auto) 14 % (10-50); Mean Corpuscular HGB Conc 33.4 g/dl (31.0-37.0); Mean Corpuscular Hemoglobin 28.7 pg (25.0-35.0); Mean Corpuscular Volume 86 fL (80-100); Monocytes # (Auto) 0.5 Thou/mm3 (0.0-0.8); Monocytes % (Auto) 8 % (0-12); Neutrophils # (Auto) 4.7 Thou/mm3 (1.8-7.7); Neutrophils % (Auto) 77 % (37-80); Nucleated Red Blood Cell % 0 /100 WBC (0); Platelet Count 171 Thou/mm3 (140-440); RDW Standard Deviation 44.5 fL (36.4-46.3); Red Blood Count 4.35 Miln/mm3 (4.00-5.20); White Blood Count 6.1 Thou/mm3 (3.6-11.0)
[2025-01-08 06:26] LABS: Alanine Aminotransferase 13 U/L (10-49); Albumin, Serum 4.3 gm/dL (3.4-4.8); Albumin/Globulin Ratio 1.7 (1.2-2.2); Alkaline Phosphatase 136 U/L (46-116); Anion Gap 12 (7-16); Aspartate Amino Transferase 17 U/L (0-34); BUN/Creatinine Ratio 14 Ratio (12-20); Bilirubin,Total 0.4 mg/dL (0.3-1.2); Blood Urea Nitrogen 11 mg/dL (9-23); Calcium 9.3 mg/dL (8.3-10.6); Calcium (Corrected) 9.3 mg/dL (8.5-10.1); Carbon Dioxide 24.6 mMol/L (20.0-31.0); Cardiac Risk Estimate 3.4 RATIO (3.7-5.6); Chloride 106 mMol/L (98-107); Cholesterol 225 mg/dL (132-200); Creatinine (Component) 0.8 mg/dL (0.6-1.3); Estimated Creatinine Clearance 54.7 mL/min (>60); Globulin 2.5 gm/dL (2.3-3.5); Glucose 110 mg/dL (74-106); HDL Cholesterol 66 mg/dL (40-60); LDL Cholesterol,Calculated 142 mg/dL (0-130); Osmolality,Calculated 285 (275-295); Potassium 3.8 mMol/L (3.4-5.1); Sodium 143 mMol/L (136-145); Thyroid Stimulating Hormone 0.57 uIU/mL (0.55-4.78); Total Protein 6.8 gm/dL (5.7-8.2); Triglycerides 86 mg/dL (30-150); eGFR > 60 See Note
--- NOTE | 2025-01-08 09:23 | PCS.ST ---
Swallow evaluation completed. Speech/Language eval ongoing. No dysphagia. Fluent aphasia. See reports for details.
[2025-01-08] MEDS: levETIRAcetam INJ 100 MG/ML VIAL 5ML 1000 MG IVP ×2 (09:27→21:26)
[2025-01-08] MEDS: ASPIRIN EC 81 MG TABEC PO (09:27)
[2025-01-08] MEDS: PANTOPRAZOLE INJ 40 MG VIAL IVP (09:28)
--- NOTE | 2025-01-08 12:08 | PC.SS ---
LABORATORY TESTER conducted bedside contact with the patient conduct initial assessment and to discuss discharge planning.? At bedside with patient was spouse, Jeremiah King [phone].? Information obtained from spouse.? Patient resides at home with spouse.? Patient does not utilize DME to assist with ambulation.? Patient does not utilize home oxygen.? Patient is able to complete ADL?s independently.? Patient?s surrogate medical decision maker is spouse, Jeremiah King.? Patient?s PCP is Dr. Tineo.? Patient?s monitoring tech is Dr. Carreno.? Patient does not participate with dialysis.? Patient utilizes [facility] for medication services.? Discharge plan is for the patient to return home.? If home health recommended no preferred vendor identified.? Family will provide transportation on behalf of the patient.? No further discharge needs identified by the patient.? No further intervention required at this time, social science research assistant will be available to address any further concerns.? Next of Kin: Jeremiah Fernando D/C Plan: Home
--- NOTE | 2025-01-08 14:42 | ESPR_ITS ---
<Statement entered by Gretchen Mcallister MD - 01/09/25 02:40> Patient was seen and examined by me personally. I have directly supervised and reviewed documentation by the team resident and agree with its findings with any exceptions or additional findings as below. Plan of care was discussed with the attending, Dr. Lennon. New overnight admit. Ms. King is a 74-year-old female with past medical history of left occipital intraparenchymal brain tumor (supposedly glioblastoma s/p resection), depression, anxiety, seizures, and hypertension who was admitted to the hospital on 01/07/2025 for receptive aphasia and acute encephalopathy concerning for stroke rule out. Initial CT head and CTA head/neck were negative. Awaiting MRI, EEG, and Neuro recommendations. Gretchen Mcallister, PGY-2 Documentation for date of: 01/08/25 Subjective Subjective Interval history: Patient seen and examined at bedside. Patient admitted overnight for stroke workup and possible seizure. Patient is pending MRI, EEG read and echocardiogram. Neurology consulted, pending recommendations Patient did receive IV ceftriaxone in the emergency department for bacteriuria, patient denies any symptoms. Will continue permissive hypertension for 24 hours. Exam Vital Signs Temp Pulse Resp BP Pulse Ox O2 Del Method 97.2 F 82 18 157/91 H 98 Room Air 01/08/25 12:00 01/08/25 12:01/08/25 12:01/08/25 12:01/08/25 12:01/08/25 12:00 Narrative Exam General: A/O x3, no acute distress difficulty word finding, family at bedside Eyes: PERRL, EOMI. Anicteric, vision grossly intact. Ears: No ear discharge, Hearing grossly intact. Nose: No nasal discharge. Mouth/Throat: Moist mucous membranes, no redness, no lesions. Neck: Neck supple, non-tender, no cervical lymphadenopathy. Lungs: Clear NANCY to auscultation and percussion, No accessory muscle use. Cardio: Normal S1/S2, regular rhythm, no murmurs, no JVD Abdomen: Soft, non-tender, no palpable masses, peristalsis present, no guarding or rebound. Extremities: Symmetrical, no significant deformities, no peripheral edema , non-tender, peripheral pulses presents. Skin: No rashes, no lesions, warm to touch. Neuro: Limited neurological exam, patient was able to follow commands, did have some receptive aphasia, was speaking fluently, has difficulty word finding. Moving all extremities. Objective Labs 01/09/25 05:18 01/09/25 05:18 Labs: Laboratory Results - last 24 hr 01/07/25 01/07/25 01/08/25 20:00 20:31 04:42 WBC 5.4 6.1 RBC 4.32 4.35 Hgb 12.4 12.5 Hct 37.7 37.4 MCV 87 86 MCH 28.7 28.7 MCHC 32.9 33.4 RDW Std Deviation 45.1 44.5 Plt Count 165 171 Neut % (Auto) 81 H 77 Lymph % (Auto) 12 14 [place] % (Auto) 6 8 Eos % (Auto) 1 0 Baso % (Auto) 1 1 Neut # (Auto) 4.4 4.7 Lymph # (Auto) 0.6 L 0.8 L [place] # (Auto) 0.3 0.5 Eos # (Auto) 0.0 0.0 Baso # (Auto) 0.0 0.0 Immature Gran # (Auto) 0.02 H 0.02 H Absolute Nucleated RBC 0.00 0.00 Immature Gran % 0 0 Nucleated RBC % 0 0 PT 10.9 INR 1.0 APTT 28.1 Sodium 138 143 Potassium 3.9 3.8 Chloride 103 106 Carbon Dioxide 24.2 24.6 Anion Gap 11 12 BUN 15 11 Creatinine 0.8 0.8 Estim Creat Clear Calc Not Performed. 54.7 L eGFR > 60 > 60 BUN/Creatinine Ratio 19 14 Glucose 154 H 110 H Calculated Osmolality 279 285 Calcium 9.6 9.3 Corrected Calcium 9.6 9.3 Magnesium 2.1 2.0 Total Bilirubin 0.4 0.4 AST 21 17 ALT 15 13 Alkaline Phosphatase 145 H 136 H Troponin I < 0.020 Total Protein 7.2 6.8 Albumin 4.4 4.3 Globulin 2.8 2.5 Albumin/Globulin Ratio 1.6 1.7 Triglycerides 86 Cholesterol 225 H LDL Cholesterol, Calc 142 H HDL Cholesterol 66 H Cholesterol/HDL Ratio 3.4 L TSH 0.57 Ur Collection Type Catheter Urine Color Colorless A Urine Clarity Clear Urine pH 7.5 H Ur Specific [place] 1.032 Urine Protein Negative Urine Glucose (UA) Negative Urine Ketones Trace Urine Blood Negative Urine Nitrite Negative Urine Bilirubin Negative Urine Urobilinogen (Auto) Negative Ur Leukocyte Esterase Positive Urine RBC 4 H Urine WBC 81 H Ur Squamous Epith Cells 5 Urine Bacteria Rare Urine Sperm Present A Urine Opiates Screen Negative Urine Fentanyl Screen Negative Ur Barbiturates Screen Negative U Amphetamin/Meth Scrn Negative U Benzodiazepines Scrn Negative U Cocaine Metab Screen Negative U Marijuana (THC) Screen Negative Ethyl Alcohol < 3.0 Quality Measures Quality Measures none Advance care planning discussed with:: patient Assessment & Plan Assessment Current Active Medications: Generic Name Dose Route Start Last Admin Trade Name Freq PRN Reason Stop Dose Admin Acetaminophen 650 mg 01/07/25 22:53 Acetaminophen 325 Mg Tablet PO 02/06/25 22:52 Q6H PRN pain and Fever >100.4 Aspirin 81 mg 01/08/25 09:00 01/08/25 09:27 Aspirin Ec 81 Mg Tabec PO 02/07/25 08:59 81 mg QDAY DOUGIE Administration Atorvastatin Calcium 40 mg 01/08/25 21:00 Atorvastatin Calcium 20 Mg Tablet PO 02/07/25 20:59 HS DOUGIE Heparin Sodium (Porcine) 5,000 unit 01/07/25 23:00 01/08/25 05:25 Heparin Sod Inj 5000 Unit/Ml Vial SC 01/21/25 22:59 5,000 unit Q8HR DOUGIE Administration Labetalol HCl 10 mg 01/07/25 22:59 Labetalol Inj 5 Mg/Ml Vial 20 Ml IVP 02/06/25 22:59 Q6H PRN SBP>220,DBP>110,hold if HR<70 Levetiracetam 1,000 mg 01/08/25 09:00 01/08/25 09:27 Levetiracetam Inj 100 Mg/Ml Vial 5ml IVP 02/07/25 08:59 1,000 mg BID DOUGIE Administration Ondansetron HCl 4 mg 01/07/25 22:53 Ondansetron Inj 2 Mg/Ml Inj 2 Ml IVP 02/06/25 22:52 Q6H PRN NAUSEA OR VOMITING Protocol Pantoprazole Sodium 40 mg 01/08/25 09:00 01/08/25 09:28 Pantoprazole Inj 40 Mg Vial IVP 02/07/25 08:59 40 mg QDAY DOUGIE Administration Plan 74-year-old female with past medical history of left occipital intraparenchymal brain tumor (supposedly glioblastoma s/p resection), depression, anxiety, seizures, and hypertension was admitted to the hospital on 01/07/2025 for receptive aphasia and acute encephalopathy as well as stroke rule out. #CVA workup #Receptive aphasia #Acute encephalopathy, resolving #Possible seizure #Hx of seizures #Hx of glioblastoma s/p resection Patient was brought in after she had an episode of being nonverbal after taking a nap and found to have vomit afterwards ?DDx TIA versus stroke versus seizure versus Figueroa's paralysis less likely ?NIHSS score 8 ?CTA head and neck negative ?CT head negative for hemorrhage or mass effect ?Teleneuro consulted and advised aspirin, MRI, EEG, Keppra No tPA due to previous brain tumor Plan: MRI stroke protocol, EEG, and echo pending Continue aspirin and atorvastatin Keppra 1 mg twice daily ?Neurochecks every 4 hours ?Allow permissive hypertension ?Head of bed elevation to 30 degrees ?Aspiration precautions -Consult in-hospital neurology, appreciate recommendations -Referred to speech and physical therapy #Hyperlipidemia Cholesterol 225, LDL 142, HDL 66, triglyceride 86 - Continue atorvastatin #Hx of depression #Hx of anxiety #Hx of hypertension Allowing permissive hypertension for now Resumed Home Dose Escitalopram Disposition: Patient admitted to telemetry for stroke rule out . Diet: Cardiac GI prophylaxis: protonix DVT prophylaxis: heparin sub cu Code: FULL Case discussed with Attending Dr. Lennon and Dr. Mcallister PGY2. Victoriano Dennis PGY1 Disclaimer: This note was dictated by speech recognition. Minor errors in copy worker may be present due to voice recognition software. Attending Provider Attestation/Addendum Face to face evaluation was performed by me. I have personally seen and examined the patient. I discussed the assessment and plan with the entire medicine team. I reviewed available medical records, imaging studies, laboratory results. I agree with the above subjective data, objective findings, assessment and plan except as corrected by me or noted below Aphasia Strokelike symptoms History of seizure disorder with recurrent seizure History of brain tumor/glioblastoma s/p resection - Was not given tPA, teleneurology was consulted, Keppra to be resumed, increase in dose was recommended. EEG, MRI brain, cardiac echo, neurology consultation Monitor neurostatus closely, therapy, monitor vitals and labs. More than > 30 minutes spent on the encounter
--- NOTE | 2025-01-08 18:14 | PC.PT ---
Patient is safe to ambulate to the bathroom and in the halls with 1 staff assist to help redirect her due to patient gets distracted easily. RN made aware.
[2025-01-08] MEDS: ATORVASTATIN CALCIUM 20 MG TABLET 40 MG PO (21:25)
--- NOTE | 2025-01-08 22:12 | ESPR_ITS ---
Documentation for date of: 01/08/25 Patient was seen in [facility] today patient was seen in telemetry today. Notes new symptoms or recurrence of similar symptoms after admission. She has trouble with word finding difficulty including names of her close family members. Subjective Subjective Interval history: Patient is a 74 year-old female with past medical history of left occipital glioblastoma s/p resection, depression, anxiety, seizures, and hypertension was admitted to the hospital on 01/07/2025 to come to the ER brought in by ambulance due to being nonverbal and unable to ambulate properly. Son mentioned that yesterday, prior to her going to take a nap patient did complain of a headache. He also stated that they did not witness any seizure-like activity. Workup in the ER: Vitals: hypertensive and afebrile. labs were unremarkable other than UA positive for bacteria. Imaging included head CT which did not show any hemorrhage, mass effect, or midline shift, but that show left occipital craniotomy defect with encephalomalacia. Head/neck CTA was unremarkable, and EKG did not show any acute ST changes. Teleneurology was consulted, stroke alert was called and recommended to admit the patient for possible CVA versus seizure. They recommended to start the patient on aspirin and to increase Keppra to 1000mg bid. No seizures reported after admission Exam - Neurology Vital Signs Temp Pulse Resp BP Pulse Ox O2 Del Method 99.2 F 89 14 134/75 H 95 Room Air 01/08/25 20:00 01/08/25 20:00 01/08/25 20:00 01/08/25 20:00 01/08/25 20:00 01/08/25 20:00 Objective Labs 01/08/25 04:42 01/08/25 04:42 Labs: Laboratory Results - last 24 hr 01/08/25 04:42 WBC 6.1 RBC 4.35 Hgb 12.5 Hct 37.4 MCV 86 MCH 28.7 MCHC 33.4 RDW Std Deviation 44.5 Plt Count 171 Neut % (Auto) 77 Lymph % (Auto) 14 [place] % (Auto) 8 Eos % (Auto) 0 Baso % (Auto) 1 Neut # (Auto) 4.7 Lymph # (Auto) 0.8 L [place] # (Auto) 0.5 Eos # (Auto) 0.0 Baso # (Auto) 0.0 Immature Gran # (Auto) 0.02 H Absolute Nucleated RBC 0.00 Immature Gran % 0 Nucleated RBC % 0 Sodium 143 Potassium 3.8 Chloride 106 Carbon Dioxide 24.6 Anion Gap 12 BUN 11 Creatinine 0.8 Estim Creat Clear Calc 54.7 L eGFR > 60 BUN/Creatinine Ratio 14 Glucose 110 H Calculated Osmolality 285 Calcium 9.3 Corrected Calcium 9.3 Magnesium 2.0 Total Bilirubin 0.4 AST 17 ALT 13 Alkaline Phosphatase 136 H Total Protein 6.8 Albumin 4.3 Globulin 2.5 Albumin/Globulin Ratio 1.7 Triglycerides 86 Cholesterol 225 H LDL Cholesterol, Calc 142 H HDL Cholesterol 66 H Cholesterol/HDL Ratio 3.4 L TSH 0.57 Assessment & Plan Assessment and plan (1) Seizure: Status: Acute Assessment and plan: Increased the dose of the Keppra to 1000 mg twice a day Continue to monitor closely and Ativan for breakthrough seizures. Follow-up with EEG. (2) Hypertension: Status: Acute Assessment and plan: Resume home meds (3) Glioblastoma multiforme of brain: Status: Chronic Assessment and plan: Reassurance given to the patient regarding the negative MRI brain for acute infarction/recurrent brain tumor. Follow-up closely with [facility] Neuro- oncology. Continue to wear Optune.
[2025-01-09] VITALS (7 sets, daily range): BP systolic 108–133; BP diastolic 71–83; PULSE 61–80; RESP 15–99; TEMP 36.4–37.6; O2SAT 92–97; BMI 29.7
[2025-01-09] MEDS: HEPARIN SOD INJ 5000 UNIT/ML VIAL SC (05:16)
[2025-01-09 05:55] LABS: Basophils % (Auto) 1 % (0-2.5); Eosinophils # (Auto) 0.1 Thou/mm3 (0.0-0.5); Eosinophils % (Auto) 1 % (0-10); Hematocrit 36.2 % (36.0-46.0); Hemoglobin 12.5 g/dL (12.0-16.0); Immature Granulocytes % (Auto) 0 % (0-0); Immature Granulocytes Auto 0.01 Thou/mm3 (0.00-0.00); Lymphocytes # (Auto) 0.9 Thou/mm3 (1.0-4.8); Lymphocytes % (Auto) 19 % (10-50); Mean Corpuscular HGB Conc 34.5 g/dl (31.0-37.0); Mean Corpuscular Hemoglobin 28.7 pg (25.0-35.0); Mean Corpuscular Volume 83 fL (80-100); Monocytes # (Auto) 0.6 Thou/mm3 (0.0-0.8); Monocytes % (Auto) 13 % (0-12); Neutrophils # (Auto) 3.1 Thou/mm3 (1.8-7.7); Neutrophils % (Auto) 66 % (37-80); Nucleated Red Blood Cell % 0 /100 WBC (0); Platelet Count 185 Thou/mm3 (140-440); RDW Standard Deviation 44.5 fL (36.4-46.3); Red Blood Count 4.35 Miln/mm3 (4.00-5.20); White Blood Count 4.7 Thou/mm3 (3.6-11.0)
[2025-01-09 06:29] LABS: Glucose Estimated Average 105 mg/dL (80-131); Hemoglobin A1C 5.3 % Hgb (4.8-6.0)
[2025-01-09 06:34] LABS: Alanine Aminotransferase 11 U/L (10-49); Albumin, Serum 4.1 gm/dL (3.4-4.8); Albumin/Globulin Ratio 1.6 (1.2-2.2); Alkaline Phosphatase 122 U/L (46-116); Anion Gap 10 (7-16); Aspartate Amino Transferase 18 U/L (0-34); BUN/Creatinine Ratio 14 Ratio (12-20); Bilirubin,Total 0.5 mg/dL (0.3-1.2); Blood Urea Nitrogen 13 mg/dL (9-23); Calcium 9.3 mg/dL (8.3-10.6); Calcium (Corrected) 9.3 mg/dL (8.5-10.1); Carbon Dioxide 24.8 mMol/L (20.0-31.0); Chloride 106 mMol/L (98-107); Creatinine (Component) 0.9 mg/dL (0.6-1.3); Globulin 2.5 gm/dL (2.3-3.5); Glucose 97 mg/dL (74-106); Magnesium 2.1 mg/dL (1.6-2.6); Osmolality,Calculated 281 (275-295); Potassium 4.2 mMol/L (3.4-5.1); Sodium 141 mMol/L (136-145); Total Protein 6.6 gm/dL (5.7-8.2); eGFR > 60 See Note
[2025-01-09] MEDS: PANTOPRAZOLE INJ 40 MG VIAL IVP (09:02)
[2025-01-09] MEDS: levETIRAcetam INJ 100 MG/ML VIAL 5ML 1000 MG IVP (09:02)
[2025-01-09] MEDS: ASPIRIN EC 81 MG TABEC PO (09:02)
[2025-01-09] MEDS: ESCITALOPRAM OXALATE 10 MG TABLET PO (09:02)
--- NOTE | 2025-01-09 09:32 | PC.SS ---
Update: Neurology recommendations are pending. Plan is for the patient to discharge home with home health.
--- NOTE | 2025-01-09 11:18 | PC.SS ---
Bedside nurse informed WEED CONTROLLER that patient will d/c home today with home health.
--- NOTE | 2025-01-09 11:45 | ESDS_ITS ---
Planned Discharge Date 01/09/25 DS: Providers Provider Date of admission: 01/07/25 22:53 Primary care physician: Evelio Tineo MD Admitting Provider: Bennett Roman MD Attending Provider on Admission: Maranda Argueta MD Consults: 01/07/25 19:50 Consult to Neurology / Tele-Neurology Routine Comment: Consulting Provider: [facility] 01/07/25 22:56 Consult to Neurology / Tele-Neurology Routine Comment: Consulting Provider: Scott Anton Referral Physical Therapy Routine Comment: Physician Instructions: Referral Speech Therapy Routine Comment: Attending Provider on DC: Maranda Argueta MD Discharging Provider: Maranda Argueta MD Anticipated date of discharge: 01/09/25 DS: Diagnosis Problem List Completed Was Problem List Reviewed/Reconciled?: Yes Hospital Course Hospital Course Hospital course: Hospital Course: Ms. King is a 74-year-old female with past medical history of left occipital intraparenchymal brain tumor (supposedly glioblastoma s/p resection), depression, anxiety, seizures, and hypertension who presented to [facility] emergency department on 01/07/2025 with a chief complaint of being nonverbal and unable to ambulate properly. Considering patient's symptoms teleneuro was consulted in the emergency department, NIHSS was 8, admission was recommended by teleneuro for stroke and seizure workup, patient CT scan of the head was negative for any hemorrhage or mass effect, CTA head and neck was negative. Patient was started on aspirin and atorvastatin, patient's Keppra dose was increased to 1000 twice daily, in-house neurology was consulted, patient was assessed by both speech and physical therapy. MRI brain was negative for any acute infarct. Echocardiogram showed normal LV size and function, EF 60 to 65%, grade 1 diastolic dysfunction. Eventually neurology cleared the patient for discharge, patient to be discharged on daily aspirin and atorvastatin. Patient's Keppra dose was increased to 1000 mg twice daily, patient will be discharged to home with home health for ST and PT requirement. Patient responded well to hospital treatment, patient is stable for discharge. Patient to follow-up with neurology in 1 to 2 weeks, follow-up with neuro- oncology. Discharge Diagnosis: #Suspected seizure recrudescence #Receptive aphasia #Ruled out acute infarct #Acute encephalopathy, resolving #Hx of seizures #Hx of glioblastoma s/p resection #Hyperlipidemia #Hypercholesterolemia #Hx of depression #Hx of anxiety #Hx of hypertension Case discussed with Attending Dr. Argueta. Victoriano Dennis PGY1 Disclaimer: This note was dictated by speech recognition. Minor errors in door clamp operator may be present due to voice recognition software. Status at Discharge Overall status at discharge: patient is progressing back to baseline Time Spent with Patient Time attestation: Total time spent providing and/or coordinating discharge services: Time spent: Greater than 30 minutes Home Health Home Health Referral Orders: 01/09/25 08:00 Home Health Referral Routine Reason For Exam: Glioblastoma Home-Bound The patient must either because of illness or injury, need the aid of supportive devices such as crutches, canes, wheelchairs, and walkers; the use of special transportation; or the assistance of another person in order to leave their place of residence; OR have a condition such that leaving his or her home is medically contraindicated. In addition, the patient also meets the following criteria: patient is normally unable to leave the home and leaving home requires considerable taxing effort. Addendum to Home Health Certification Practitioner's Certification: I certify that the patient has been under my care in the hospital and the care of attending physician (see below). We had a [id number] encounter on (see date below). My clinical findings indicate that the patient is home bound per the above criteria and the Home Health Services noted in these orders are medically necessary. The primary reason for the [id number] encounter is related to the fact that the patient requires home health services. Date Certifying [id number] Physician Encounter: 01/07/25 Physician's Name who will Assume Oversight for Services: Evelio Tineo Physician's Phone No.who will Assume Oversight for Service: CANDLE WRAPPING MACHINE OPERATOR - Community Resources: No PT to Evaluate: Yes: Both PT and ST PT to evaluate and provide a treatmnet plan to increase patient's mobility and strength. Wound Care: No IV Therapy: No RN Safety Evaluation: Yes RN to evaluate and create a plan of care that will produce positive outcomes. Palliative Treatment: No Palliative treatment and evaluate the need for hospice. Home Health Aide - Personal Care: No Home Health Aide to assist with any ADL's. Exam Vital Signs Temp Pulse Resp BP Pulse Ox O2 Del Method 97.5 F 80 22 H 108/71 92 L Room Air 01/09/25 08:00 01/09/25 08:03 01/09/25 08:03 01/09/25 08:00 01/09/25 08:00 01/09/25 08:00 Narrative Exam General: A/O x3, no acute distress difficulty word finding, family at bedside Eyes: PERRL, EOMI. Anicteric, vision grossly intact. Ears: No ear discharge, Hearing grossly intact. Nose: No nasal discharge. Mouth/Throat: Moist mucous membranes, no redness, no lesions. Neck: Neck supple, non-tender, no cervical lymphadenopathy. Lungs: Clear NANCY to auscultation and percussion, No accessory muscle use. Cardio: Normal S1/S2, regular rhythm, no murmurs, no JVD Abdomen: Soft, non-tender, no palpable masses, peristalsis present, no guarding or rebound. Extremities: Symmetrical, no significant deformities, no peripheral edema , non-tender, peripheral pulses presents. Skin: No rashes, no lesions, warm to touch. Neuro: Limited neurological exam, patient was able to follow commands, does have some aphasia, was speaking fluently, has difficulty word finding. Moving all extremities. Discharge Plan Plan Patient Disposition: Home w/HOME HEALTH Patient condition on transfer: Stable Prescriptions/Referrals Prescriptions/Med Rec: New levetiracetam [Keppra] 1,000 mg tablet 1,000 mg PO BID 30 Days Qty: 60 0RF aspirin 81 mg capsule 81 mg PO QDAY Qty: 30 0RF atorvastatin 40 mg tablet 40 mg PO QPM Qty: 30 0RF Continued escitalopram oxalate 10 mg tablet 10 mg PO QDAY Patient Comments: TAKE 1 TABLET BY MOUTH EVERY DAY omeprazole 20 mg capsule,delayed release(DR/EC) 20 mg PO QDAY Patient Comments: TAKE 1 CAPSULE BY MOUTH EVERY DAY Discontinued lisinopril 5 mg tablet 5 mg PO QDAY Patient Comments: TAKE 1 TABLET BY MOUTH EVERY DAY pantoprazole [Protonix] [address] for susp in packet 40 mg PO QDAY 30 Days Qty: 30 1RF levetiracetam 500 mg tablet 500 mg PO BID Patient Comments: TAKE 1 TABLET BY MOUTH TWICE DAILY Referrals: Evelio Tineo MD [Primary Care Provider] - Scott Anton MD [Physician] - Patient/Caregiver Discharge Instructions Discharge Activity: as per physical therapy Other Discharge Activity Instructions:: Start taking aspirin 81 mg daily to prevent stroke, take 40 mg atorvastatin daily every night for high cholesterol. We have increased the seizure medication dosage, start taking Keppra 1000 mg twice daily. Follow-up with neurologist Dr. Anton outpatient in 1 to 2 weeks, follow-up with neuro-oncology at [facility] as scheduled. Follow-up with primary care physician in 1 to 2 weeks. Continue home medications as prescribed. Return to ED if symptoms worsen. Other Discharge Diet Instructions: Cardiac Diet, Low sodium Diet Education Materials: Dysarthria: Improving Speech, Anatomy of the Brain, Discharge Instructions for Stroke, Risk Factors for Stroke, ED Seizure, Recurrent (Adult), ED Seizure New Onset Unknown ... Print Language: Kiswahili Stand Alone Forms: [place] Award Info., Patient Portal Info Letter Discharge Order Discharge Orders: Discharge (Routine); Ordered 01/09/25 Ordered By: Victoriano Dennis Quality Discharge Quality Measures VTE prophylaxis MD Attestestation MD Attestation I attest that I was physically present for the evaluation, physical examination, lab and imaging review of the patient with the residents. I discussed the case with the residents and agree with the findings and plans of care as documented above. Maranda Argueta MD
--- NOTE | 2025-01-09 14:33 | PC.SS ---
Rounding Note: Plan is to d/c patient home today.
--- NOTE | 2025-01-09 15:40 | PC.NURSE ---
Pt family at bedside for discharge instructions. singed for patient per request by pt. Family and pt understand of follow up appts. Notified Dr. Anton of discharge, ok to discharge. notified Dr. Dennis of family requesting mri report, dr. dennis printed and handed mri report to pt. educated family on requesting medical records for cd. educated pt and family of s/s of stroke with stroke packet. educated family of s/s of seizure and printed education. family verbalized able to excelsior picker new prescriptions and understand how to take new prescriptions. pt and family feel safe to discharge home. ana rosa vazquez helped set up home health, hh will call due to pt having aphasia. Educated family if further questions to call hospital to speak to medical social consultant.
--- NOTE | 2025-01-10 09:24 | PC.CC ---
Referred to [facility], start of care 01-11-25.
== END 2025-01-09 15:51 | disposition home health service (06) | DRG 92 ==
LOC: SERX 22:26 → SERHOLD 23:06 → S2NX 01-08 00:16
PROVIDERS: Admitting Provider Student in an Organized Health Care Education/Training Program; Emergency Provider Emergency Medicine; PCP Family Medicine; Visit Provider Student in an Organized Health Care Education/Training Program
DX: R47.01 Aphasia (principal); C71.9 Malignant neoplasm of brain, unspecified; G93.40 Encephalopathy, unspecified; I10 Essential (primary) hypertension; E78.00 Pure hypercholesterolemia, unspecified; G40.909 Epilepsy, unspecified, not intractable, without status epilepticus; F41.9 Anxiety disorder, unspecified; F32.A Depression, unspecified; Z85.841 Personal history of malignant neoplasm of brain; G93.89 Other specified disorders of brain
CPT/HCPCS: 36415; 36600; 70450; 70496; 70498; 70544; 80053; 80061; 80307; 80320; 81001; 82803; 83036; 83735; 84443; 84484; 85025; 85610; 85730; 87077; 87086; 87186; 92507; 92523; 92610; 93005; 93306; 95816; 96365; 96375; 97162; 99291; A4649; J0696; J1644; J1953; J2470; J7030; Q9967; A9270; G0480

== ENCOUNTER → 2025-05-14 | Outpatient (CLI) | payer MEDICARE, BC, SELFPAY ==
--- NOTE | 2025-05-14 13:44 | XR_ITS ---
Examination: PA lateral chest 2 views TECHNIQUE: Upright PA lateral chest 2 views Date and time: May 14, 2025, 1357 hours INDICATIONS: Preop FINDINGS: Normal heart size Minor subsegmental atelectasis left base No pneumonia or pulmonary edema Prominent osteopenia IMPRESSION: No pneumonia or pulmonary edema
[2025-05-14 16:10] LABS: Collection Type, Urine Clean Catch
[2025-05-14 17:02] LABS: Bacteria,Urine 2+; Bilirubin,Urine Negative (Negative); Blood,Urine Negative (Negative); Color,Urine Lt-Yellow (Lt Yel-Yel); Glucose, Urine Negative (Negative); Ketones,Urine Negative (Negative); Leukocyte Esterase,Urine Positive (Negative); Nitrite,Urine Positive (Negative); PH,Urine 6.0 (5.0-7.0); Protein,Urine Negative (Neg - Trace); RBC,Urine 2 /hpf (0-3); Specific Gravity,Urine 1.021 (1.001-1.035); Squamous Epithelial Cell,Urine 3 /hpf (0-5); Transitional Epi Cells,Urine 1 /hpf (0-5); Urobilinogen,Urine Negative mg/dL (0.0-1.0); WBC,Urine 102 /hpf (0-5)
[2025-05-14 17:09] LABS: Clarity,Urine Hazy (Clear/Hazy); Culture Indicated,Urine Yes
== END | disposition home or self-care (01) ==
LOC: COPL 13:29 → SLDO 14:06
PROVIDERS: PCP Family Medicine; Referring Provider Family Medicine; Visit Provider Radiology Diagnostic Radiology
DX: R05.9 Cough, unspecified (principal); N39.0 Urinary tract infection, site not specified
CPT/HCPCS: 71046; 81001; 87077; 87086; 87186

== ENCOUNTER 2025-07-28 14:02 | Emergency (ER) | payer MEDICARE, BC, SELFPAY ==
--- NOTE | 2025-07-28 | XR_ITS ---
Examination: MRI of brain without intravenous contrast. MRI brain with intravenous contrast. Date and time of exam: July 28, 2025, 1702 hours, comparison 04/27/2023 INDICATIONS: Prominent edema on the CT brain scan today in the left posterior parietal lobe, history brain tumor, altered mental status today Technique: Multiple axial and sagittal images of the brain to been obtained. Siemens high-resolution 1.52 Juany short bore scanner utilized. Sagittal sections, T1 weighted images, TR 500, TE 14, are performed. Axial sections proton-density and T2-weighted images have been obtained. Inversion recovery axial images, TR 9260, TE 111, TR 2500. Diffusion weighted images, axial sections, TR 4800, TE 128, B value 1000. Axial sections, ADC map, TR 4800, TE 128. Axial and coronal images were also obtained post 14 cc gadolinium administered intravenously. Findings:: Enlargement of the sella turcica is not present. The optic chiasm and infundibular stalk are not remarkable. There is no localized enlargement of the medulla or juliocesar. Fourth ventricle and cerebellar tonsils appear normal in position. No subacute area of hemorrhage density is seen. Fourth ventricle is midline. Mass in the cerebellopontine angle region is not evident. 7th and 8th nerve complexes exhibit symmetry Globes are symmetrical Orbital musculature including medial lateral rectus muscles do not exhibit abnormality Increased white matter signal is prominent in the left posterior parietal-occipital lobe Effacement of the cortical sulcal markings is not identified. Mass effect upon the ventricular system is not identified. Diffusion-weighted images demonstrate restricted diffusion in the left occipital lobe diffusion image 12 with matching signal deficit on the ADC map Contrast images demonstrate serpiginous contrast enhancement rim-like around the area of encephalomalacia in the left posterior parietal lobe as well as abnormal enhancement in the left trigone Impression: Positive for restricted diffusion with signal deficit on the ADC map in the posterior left parietal lobe adjacent to the occipital horn, image 12, consider acute infarct at this site, recommend neurology consultation and correlation with clinical findings Abnormal serpiginous enhancement at the area of encephalomalacia in the left posterior parietal lobe extending into the left ventricular trigone, axial images 11 through 14, consistent with residual or recurrent tumor
[2025-07-28 14:09] VITALS: PULSE 75; RESP 18; O2SAT 98
[2025-07-28 14:24] VITALS: BP 165/106; PULSE 69; RESP 13; TEMP 36.5; O2SAT 88
[2025-07-28 14:25] VITALS: O2SAT 96
--- NOTE | 2025-07-28 14:40 | EKG_ITS ---
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
--- NOTE | 2025-07-28 14:40 | XR_ITS ---
Examination: CT brain head without contrast. 2-D sagittal coronal reconstructions Date and time of exam: July 28, 2025, CT 11 hours COMPARISON: January 07, 2025 INDICATIONS: Altered mental status today CTDI: vol (mGy): 50 DLP: (mGycm): 1038 Technique: Multiple CT axial sections of the brain have been obtained, 5 mm slice thickness. Contrast has not been administered. 2-D sagittal, coronal reconstructions have been obtained Low dose protocols were performed. One or more of the following dose reduction techniques were used; automated exposure control, adjustment of the mA and/or KV according to patient size, use of iterative reconstruction technique. Findings: More pronounced edema in the posterior left parietal occipital lobe adjacent to the occipital craniotomy defect on the left Ventricles are not enlarged No definite acute hemorrhage No shift of the frontal horns Tiny old infarct right caudate nucleus No skull fracture IMPRESSION: More prominent edema in the left posterior parietal occipital lobe, recommend brain MRI follow-up pre and postcontrast to exclude underlying neoplasm and exclude acute infarct
--- NOTE | 2025-07-28 14:40 | XR_ITS ---
EXAMINATION: AP chest single view TECHNIQUE: AP portable semiupright chest single view Date and time: July 28, 2025, 1445 hours, comparison May 14, 2025 INDICATIONS: Chest pain today FINDINGS: Mild to moderate enlargement left ventricle Mild vascular congestion. No lobar pneumonia or pulmonary edema Moderate osteopenia IMPRESSION: Mild to moderate enlargement left ventricle Mild vascular congestion
--- NOTE | 2025-07-28 14:41 | PD.EDAMS ---
Altered Mental Status RME/HPI General Chief Complaint: Altered Mental Status Stated Complaint: AMS Time Seen by Provider: 07/28/25 14:10 Arrival date/time: 07/28/25 14:02 74-year-old female patient with significant history of glioblastoma multiforme seizure disorder, CVA, hypertension was brought in by EMS for evaluation regarding altered mental status. Last well-known time was 16 hours ago. Patient woke up 8:00 this morning confused did not eat breakfast and moving less. Hold morning today patient was lying in the couch. When the came back from outside, patient was noted to be more confused than usual and decided to call EMS at 2 PM today for further evaluation. When the EMS arrived patient was noted to have postictal confusion, which according to the EMS gradually improves. On my initial evaluation patient is drowsy however follows simple commands, able to move both upper and lower extremity without any limitation. Patient also had sudden onset of confusion 2 days ago, lasting for several minutes that went away on its own. Patient is currently taking Keppra. For her family, patient had surgery for glioblastoma multiform a 2 years ago and the tumor core and another surgery last May. Patient received initial doses of immunotherapy. Patient is followed by a neurosurgeon from [facility] in [place]. per patient has been taking a lot of Excedrin. Related Data Home Medications ?Medication ?Instructions ?Recorded ?Confirmed escitalopram oxalate 10 mg tablet 10 mg PO QDAY 09/24/20 01/08/25 omeprazole 20 mg capsule,delayed 20 mg PO QDAY 01/08/25 01/08/25 release Previous Rx's ?Medication ?Instructions ?Recorded aspirin 81 mg capsule 81 mg PO QDAY #30 caps 01/09/25 atorvastatin 40 mg tablet 40 mg PO QPM #30 tabs 01/09/25 Allergies Allergy/AdvReac Type Severity Reaction Status Date / Time Penicillins Allergy Intermediate Hives Verified 04/24/23 13:34 Review of Systems Review of Systems Narrative Review of Systems: Review of system reviewed and within normal limits except mentioned in HPI ED Exam Narrative Physical exam: VITAL SIGNS: Reviewed. GENERAL APPEARANCE: Alert and oriented x 1, she knows her name, follows simple commands, no acute distress, drowsy HEAD AND FACE: Non-traumatic. ENT: PERRL, pink conjunctivitis, eyelid no trauma, Mucous membrane moist. NECK: Supple, nontender, no nuchal rigidity. CHEST: No tenderness, no crepitus, no paradoxical movement, no retractions. LUNGS: Clear, well ventilated, symmetric, no rales, no wheezing, no ronchi, no stridor, good breath sounds bilaterally. HEART: Regular rate, regular rhythm, no murmur, no gallops. ABDOMEN: Soft, positive bowel sounds, nondistended, no guarding, nontender, no rebound, no masses, RECTAL: Deferred. GENITAL: Deferred. NEUROLOGICAL: Gross motor function intact sensory function intact, Appropriate for age. MUSCULOSKELETAL: low back nontender, full range of motion. EXTREMITIES: Nontender, full range of motion. SKIN: Color pink, dry, no rash, no lacerations, no abrasions, no contusions. LYMPHATICS: Deferred. Course Quality Measures none Orders Category Date Time Status COVID-19 Screening Questionnaire NOW Care 07/28/25 19:12 Active EKG (ED ONLY) *Do not use* NOW Care 07/28/25 14:40 Completed In and Out Catheter X1 Care 07/28/25 16:46 Completed MRI Screening NOW Care 07/28/25 16:[address] angio stroke protocol Stat Exams 07/28/25 18:[address] head/brain wo con Stat Exams 07/28/25 14:40 Completed EKG (ED Only) Stat Exams 07/28/25 14:40 Draft MR head/brain wo/w con Stat Exams 07/28/25 Completed XR chest 1V Stat Exams 07/28/25 14:40 Completed Ammonia Stat Lab 07/28/25 15:07 Completed B-Type Natriuretic Peptide Stat Lab 07/28/25 15:07 Completed CBC Stat Lab 07/28/25 15:07 Completed Comprehensive Metabolic Panel Stat Lab 07/28/25 15:07 Completed Lactate (Lactic Acid) Stat Lab 07/28/25 15:07 Completed Partial Thromboplastin Time Stat Lab 07/28/25 15:07 Completed Troponin I Stat Lab 07/28/25 15:07 Completed Urinalysis, C/S if Indicated Stat Lab 07/28/25 18:02 Completed Urine Culture Stat Lab 07/28/25 18:02 Received Ringers Lactated 1000 ml [Lactated Ringers] 1,000 ml Med 07/28/25 14:40 Discontinued IV 999 mls/hr cefTRIAXone/D5w 1gm IV premix [Rocephin/D5w 1gm IV Med 07/28/25 18:38 Discontinued premix] 1 gm in 50 ml IV X1 dexAMETHasone INJ [Decadron Inj] Med 07/28/25 16:49 Discontinued 10 mg IVP X1 ONE levETIRAcetam INJ [Keppra Inj] Med 07/28/25 14:40 Discontinued 1,000 mg IVP X1 ONE Vital Signs Vital signs: Vital Signs Temperature 97.7 F 07/28/25 14:24 Pulse Rate 69 07/28/25 14:24 Respiratory Rate 13 07/28/25 14:24 Blood Pressure 165/106 H 07/28/25 14:24 Pulse Oximetry (%) 88 L 07/28/25 14:24 Oxygen Delivery Method Room Air 07/28/25 14:24 Altered Mental Status MDM Narrative MDM Narrative:: 74-year-old female patient with significant history of glioblastoma multiforme seizure disorder, CVA, hypertension was brought in by EMS for evaluation regarding altered mental status. Last well-known time was 16 hours ago. Patient woke up 8:00 this morning confused did not eat breakfast and moving less. Hold morning today patient was lying in the couch. When the came back from outside, patient was noted to be more confused than usual and decided to call EMS at 2 PM today for further evaluation. When the EMS arrived patient was noted to have postictal confusion, which according to the EMS gradually improves. On my initial evaluation patient is drowsy however follows simple commands, able to move both upper and lower extremity without any limitation. Patient also had sudden onset of confusion 2 days ago, lasting for several minutes that went away on its own. Patient is currently taking Keppra. For her family, patient had surgery for glioblastoma multiform a 2 years ago and the tumor core and another surgery last May. Patient received initial doses of immunotherapy. Patient is followed by a neurosurgeon from [facility] in [place]. per patient has been taking a lot of Excedrin. CT scan of the head ordered, and showed More prominent edema in the left posterior parietal occipital lobe, recommend brain MRI follow-up pre and postcontrast to exclude underlying neoplasm and exclude acute infarct I spoke with radiologist, who recommend MRI. I ordered for MRI right away. Per recommendation by my EDMD Dr. Muñoz patient was given Decadron 10 mg IV. Patient also given Keppra 1 g IV. MRI showed Positive for restricted diffusion with signal deficit on the ADC map in the posterior left parietal lobe adjacent to the occipital horn, image 12, consider acute infarct at this site, recommend neurology consultation and correlation with clinical findings Abnormal serpiginous enhancement at the area of encephalomalacia in the left posterior parietal lobe extending into the left ventricular trigone, axial images 11 through 14, consistent with residual or recurrent tumor 1830 Referral to teleneurologist was initiated right away Patient was also given ceftriaxone IV for UTI I spoke with teleneurologist, who recommends transfer for emergency EEG for possible nonconvulsive status epilepticus Patient is to be transferred to higher level care Family is agreeable with the plan Spoke with ICU concrete engineering technician in [facility] in [place], and accepted the patient. Patient data External records reviewed:: None Clinical information provided by:: patient Social determinants that could affect healthcare access:: none Patient has the following chronic illnesses:: GBM, status post surgery x 2, hypertension, seizure disorder How is presenting disease/condition affected by chronic disease/condition?: caused by Evaluation data The following diagnostics were reviewed and interpreted by me:: lab results and radiology exam(s) Lab and/or radiology exams considered but not ordered:: None Interpretation Summary: See above EKG showed normal sinus rhythm, ventricular rate of 70 bpm, no ST segment elevation or depression noted. Medications / Prescriptions Medications or Prescriptions considered but not ordered:: None Medication administrations:: Medication Administration History Discontinued Medications Dexamethasone Sodium Phosphate (Dexamethasone Sod Phos Inj 10 Mg/Ml Vial) 10 mg IVP X1 ONE Stop: 07/28/25 16:50 Last Admin: 07/28/25 18:25 Dose: 10 mg Documented By: BD Lactated Ringer's (Lactated Ringers) 1,000 mls @ 999 mls/hr IV .Q1H1M ONE Stop: 07/28/25 15:40 Last Infusion: 07/28/25 16:57 Dose: Infused Documented By: Admin: 07/28/25 15:09 Dose: 999 mls/hr Documented By: BD Ceftriaxone Sodium/Dextrose (Rocephin/D5w 1gm Iv Premix) 1 gm in 50 mls @ 100 mls/hr IV X1 ONE Stop: 07/28/25 19:07 Last Infusion: 07/28/25 20:14 Dose: Infused Documented By: Admin: 07/28/25 19:15 Dose: 100 mls/hr Documented By: BD Levetiracetam (Levetiracetam Inj 100 Mg/Ml Vial 5ml) 1,000 mg IVP X1 ONE Stop: 07/28/25 14:41 Last Admin: 07/28/25 15:09 Dose: 1,000 mg Documented By: BD See above Consultations Consultation(s) initiated? (list below): Yes Consultation #1 (Physician, Specialty, Details): Teleneurologist recommends transfer for possible nonconvulsive status epilepticus with new infarct Diagnosis Differential diagnosis altered mental status: altered mental status Most likely diagnosis given after review of the tests above:: Absent status epilepticus, altered mental status, ischemic stroke Admission Indicated Admission indicated?: indicated Explain why admission is indicated or not indicated:: Transfer to higher level care Admission Request Was there a request for admission?: No Disposition Plan Disposition Plan: Transfer Critical Care Time Critical Care Time Critical Care Time: Yes Total Critical Care Time (min.): 45 Attestation: Critical Care Time The very real possibility of a deterioration of this patient's condition required the highest level of my preparedness for sudden, emergent intervention for the following systems: Cardiac and Metabolic. I provided critical care services, which included medication orders, frequent re-evaluations of the patient's condition and response to treatment, ordering and reviewing test results, and discussing the case with various consultants including: nursing staff, hospitalist, and more. The critical care time associated with the care of this patient was 45 minutes. Discharge Plan Plan Patient Disposition: [facility] Acute Care [facility] Facility Pt Being Transferred to: Other-Specify in comment Service Needed for Transfer: Neurology Discharge Disposition comment: Patient was transferred to [facility] in [place] Prescriptions/Referrals Prescriptions/Med Rec: No Action escitalopram oxalate 10 mg tablet 10 mg PO QDAY Patient Comments: TAKE 1 TABLET BY MOUTH EVERY DAY omeprazole 20 mg capsule,delayed release(DR/EC) 20 mg PO QDAY Patient Comments: TAKE 1 CAPSULE BY MOUTH EVERY DAY aspirin 81 mg capsule 81 mg PO QDAY Qty: 30 0RF atorvastatin 40 mg tablet 40 mg PO QPM Qty: 30 0RF Referrals: Evelio Tineo MD [Primary Care Provider, Family Practice] - In 1 week Problem List Clinical Impression: Altered mental status, Absence status epilepticus Patient/Caregiver Discharge Instructions Print Language: Romansh Stand Alone Forms: [facility] Award Info., Patient Portal Info Letter
[2025-07-28] MEDS: levETIRAcetam INJ 100 MG/ML VIAL 5ML 1000 MG IVP (15:09)
[2025-07-28] MEDS: RINGERS LACTATED 1000 ML 1,000 ML 999 ML IV (15:09)
[2025-07-28 15:14] LABS: Lactate (Lactic Acid) 0.8 mMol/L (0.4-2.0)
[2025-07-28 15:17] VITALS: BMI 28.3
[2025-07-28 15:22] LABS: Basophils # (Auto) 0.0 Thou/mm3 (0.0-0.2); Basophils % (Auto) 1 % (0-2.5); Eosinophils # (Auto) 0.0 Thou/mm3 (0.0-0.5); Eosinophils % (Auto) 1 % (0-10); Hematocrit 34.7 % (36.0-46.0); Hemoglobin 10.9 g/dL (12.0-16.0); Immature Granulocytes Auto 0.01 Thou/mm3 (0.00-0.00); Lymphocytes # (Auto) 0.6 Thou/mm3 (1.0-4.8); Lymphocytes % (Auto) 16 % (10-50); Mean Corpuscular HGB Conc 31.4 g/dl (31.0-37.0); Mean Corpuscular Hemoglobin 26.5 pg (25.0-35.0); Mean Corpuscular Volume 84 fL (80-100); Monocytes # (Auto) 0.3 Thou/mm3 (0.0-0.8); Monocytes % (Auto) 8 % (0-12); Neutrophils # (Auto) 2.7 Thou/mm3 (1.8-7.7); Neutrophils % (Auto) 74 % (37-80); Nucleated Red Blood Cell # 0.00 Thou/mm3 (0.00-0.00); Nucleated Red Blood Cell % 0 /100 WBC (0); Platelet Count 159 Thou/mm3 (140-440); RDW Standard Deviation 45.0 fL (36.4-46.3); Red Blood Count 4.12 Miln/mm3 (4.00-5.20); White Blood Count 3.6 Thou/mm3 (3.6-11.0)
[2025-07-28 15:41] LABS: Partial Thromboplastin Time 27.0 Seconds (22.0-36.0)
[2025-07-28 15:44] LABS: B-Type Natriuretic Peptide 27 pg/mL (0-100)
[2025-07-28 15:45] LABS: Ammonia 11 uMol/L (11-32)
[2025-07-28 15:46] LABS: Alanine Aminotransferase 24 U/L (10-49); Albumin, Serum 4.1 gm/dL (3.4-4.8); Albumin/Globulin Ratio 1.5 (1.2-2.2); Alkaline Phosphatase 162 U/L (46-116); Anion Gap 10 (7-16); Aspartate Amino Transferase 25 U/L (0-34); BUN/Creatinine Ratio 13 Ratio (12-20); Bilirubin,Total 0.2 mg/dL (0.3-1.2); Blood Urea Nitrogen 9 mg/dL (9-23); Calcium 9.1 mg/dL (8.3-10.6); Calcium (Corrected) 9.1 mg/dL (8.5-10.1); Carbon Dioxide 25.4 mMol/L (20.0-31.0); Chloride 110 mMol/L (98-107); Creatinine (Component) 0.7 mg/dL (0.6-1.3); Estimated Creatinine Clearance 66.7 mL/min (>60); Globulin 2.7 gm/dL (2.3-3.5); Glucose 142 mg/dL (74-106); Osmolality,Calculated 289 (275-295); Potassium 3.9 mMol/L (3.4-5.1); Sodium 145 mMol/L (136-145); Total Protein 6.8 gm/dL (5.7-8.2); Troponin I < 0.002 ng/mL (0.0-0.045); eGFR > 60 See Note
[2025-07-28 18:03] VITALS: BP 154/63; PULSE 61; RESP 20; TEMP 36.4; O2SAT 98
[2025-07-28 18:16] LABS: Collection Type, Urine Clean Catch
--- NOTE | 2025-07-28 18:22 | XR_ITS ---
Examination: CTA carotids with intravenous contrast CTA brain, head with intravenous contrast. 2-D sagittal, coronal reconstructions. 3-D reconstructions. Exam date and time: July 28, 2025, 1849 hours INDICATIONS: Altered mental status today, abnormal enhancement in the left posterior parietal occipital lobe with focus of restricted diffusion in the posterior left parietal lobe adjacent to the occipital horn CTDI: vol (mGy) 25.5 DLP: (mGycm) 476 Technique: Multiple CTA axial brain, head carotid images post intravenous contrast injection 100 cc, [id number]. 2-D sagittal, coronal reconstructions. 3-D reconstructions, 3-D post processing including vascular maximum intensity projection images. Low dose protocols were performed. One or more of the following dose reduction techniques were used; automated exposure control, adjustment of the mA and/or KV according to patient size, use of iterative reconstruction technique. Findings: No significant common carotid carotid bifurcation or internal carotid artery stenoses in the neck Mildly dominant left vertebral artery in the neck no vertebral artery significant stenoses Intracranial vertebral arteries basilar artery posterior cerebral branches fill with no large vessel occlusions Petrous juxtasellar supraclinoid portions internal carotid arteries intact M1 segments middle cerebral arteries middle cerebral artery trifurcation vessels anterior cerebral arteries fill with no large vessel occlusions IMPRESSION: No significant neck arterial stenoses No cerebral large vessel arterial occlusions
[2025-07-28 18:24] LABS: Bacteria,Urine 1+; Bilirubin,Urine Negative (Negative); Blood,Urine Negative (Negative); Clarity,Urine Clear (Clear/Hazy); Color,Urine Lt-Yellow (Lt Yel-Yel); Glucose, Urine Negative (Negative); Ketones,Urine 1+ (Negative); Leukocyte Esterase,Urine Positive (Negative); Nitrite,Urine Positive (Negative); PH,Urine 6.5 (5.0-7.0); Protein,Urine Negative (Neg - Trace); RBC,Urine 1 /hpf (0-3); Specific Gravity,Urine 1.014 (1.001-1.035); Squamous Epithelial Cell,Urine 1 /hpf (0-5); Urobilinogen,Urine Negative mg/dL (0.0-1.0); WBC,Urine 42 /hpf (0-5)
[2025-07-28 18:25] LABS: Culture Indicated,Urine Yes
[2025-07-28] MEDS: cefTRIAXone/D5w 1gm IV premix 1 GM/50 ML BAG IV (19:15)
--- NOTE | 2025-07-28 19:34 | PD.TNEURO ---
Tele Neuro Consultation Consultation Date 07/28/25 Most Recent Vital Signs Last Vital Signs Temp 97.6 F 07/28/25 18:03 Pulse 61 07/28/25 18:03 Resp 20 07/28/25 18:03 BP 154/63 H 07/28/25 18:03 Pulse Ox 98 07/28/25 18:03 O2 Del Method Nasal Cannula 07/28/25 18:03 O2 Flow Rate 2 07/28/25 18:03 Laboratory-Coagulation Panel APTT 27.0 Seconds (22.0-36.0) 07/28/25 15:07 Consultation Narrative [facility] TeleNeurology Consult Services Stat Consult Patient Name:???Lindy King Date of :???1950 Identification Number:??? Date of Service:???07/28/2025 18:20:44 Diagnosis:?G93.49 - Encephalopathy Multifactorial ?I63.89 - Cerebrovascular accident (CVA) due to other mechanism ([facility]) Impression 74yo F with PMH of GBM s/p surgery x 2 and immunotherapy, hx of seizures, stroke, HTN and HLD who presents to the ED with AMS. CTH with possible edema. s/p Decadron and Keppra. MRI Brain w/wo revealed enhancing area of possible residual vs new tumor; and an area suspicious for acute stroke. On exam, patient drowsy but arousable. Following on some commands via mimic. No usable speech. Says what do you mean to every question. No obvious limb weakness. Differential diagnosis of AMS includes nonconvulsive status epilepticus (post ictal per EMS with waxing/waning MS), vs toxic metabolic encephalopathy in setting of acute UTI. AMS not explained by her acute ischemic stroke. - Recommend stat EEG to rule out NCSE (improvement and then worsening MS in ED with no improvement again, new findings on MRI). Seizure precautions. s/p 1g load of Keppra. Continue Keppra 1g BID. Ativan 2mg PRN for seizure lasting more than 2 mins. Rest of toxic, metabolic, infectious workup and management per primary/ED teams. - Recommend completing stroke workup with 2D echo, labs. Start ASA 81mg daily. Start statin - Recommend attempting to contact her neuro-oncologist to determine if tumor findings on MRI are new or known. Recommendations: Our recommendations are outlined below. Advanced Imaging: CTA Head and Neck Completed. LVO:No Patient is not a candidate for JARVIS Metrics: Callback Response Time: 07/28/2025 18:25:12 Primary Provider Notified of Diagnostic Impression and Management Plan on: 07/28/2025 19:34:14 CT HEAD: I personally reviewed all the CT images that were available to me and it showed:?areas suspicious for edema in left occipital-parietal lobe Chief Complaint: AMS History of Present Illness:Patient is a 74 year old Female. 74yo F with PMH of GBM s/p surgery x 2 and immunotherapy, hx of seizures, stroke, HTN and HLD who presents to the ED with AMS. History obtained from medical chart, and ED nurse. Patient was last normal last night. She woke this morning and was slow in movements and responses. She had breakfast and was lying on the couch. came back into the room after being outside and noted her to be not responding to him. He called EMS. EMS notes that she appeared post ictal. Confusion briefly improved in the ED with her being more responsive and then patient noted to worsen again. Unclear if this was in relation to her receiving Decadron for edema noted on CT head. She also got 1g Keppra load. MRI Brain w/wo contrast was done today and revealed enhancing area of possible residual vs new tumor; and an area suspicious for acute stroke. Of note, patient had an episode of LOC on followed by confusion which she recovered from. Has been compliant with her home Keppra, per . On 1000mg twice daily since May. Has been off Aspirin 81mg for several months due to running out of prescription. Last saw her neuro-oncologist at [facility] on 07/10/25 at which time she had immunotherapy. Has had declining energy since then. On exam, patient drowsy but arousable. Following on some commands via mimic. Not showing fingers or sticking out tongue, but holding and maintaining limbs when brought up for her. No usable speech. Says what do you mean to every question. No obvious limb weakness. Past Medical History: ?Hypertension ?Hyperlipidemia ?Stroke ?Seizures Medications: No Anticoagulant use? No Antiplatelet use Reviewed EMR for current medications Allergies:? Reviewed Social History: Smoking: No Alcohol Use: No Family History: There is no family history of premature cerebrovascular disease pertinent to this consultation ROS : 14 Points Review of Systems was performed and was negative except mentioned in HPI. Past Surgical History: There Is No Surgical History Contributory To Today?s Visit Examination: BP(154/63),?Pulse(61), Neuro Exam: General:?Drowsy but arousable. Non-verbal so unable to answer orientation questions. Speech:?No obvious dysarthria. Language:?Aphasia: No usable speech. Repeats what do you mean to every question. Face:?Symmetric: Facial Sensation:?Intact: Visual [place]:?Intact: Extraocular Movements:?Intact: Motor Exam:?No Drift: Sensation:?Intact: Coordination:?Intact: Spoke with :?Rizwan Aguliar NP This consult was conducted in real time using interactive audio and video technology. Patient was informed of the technology being used for this visit and agreed to proceed. Patient located in hospital and provider located at home/office setting. Patient is being evaluated for possible acute neurologic impairment and high probability of imminent or life - threatening deterioration.I spent total of 60 minutes providing care to this patient, including time for face to face visit via telemedicine, review of medical records, imaging studies and discussion of findings with providers, the patient and / or family. Dr Lyla Edwards [facility] For Inpatient follow-up with [facility] physician please call [facility] at . As we are not an outpatient service for any post hospital discharge needs please contact the hospital for assistance. If you have any questions for the [facility] physicians or need to reconsult for clinical or diagnostic changes please contact us via [facility] at . Non-radiologist review of imaging performed to assist with emergent clinical decision-making. Remote physician workstations do not possess the same resolution, calibration, or diagnostic capabilities as hospital-based radiology reading stations, and formal radiologist read is necessary. Signature :?Lyla Edwards
[2025-07-28 19:51] VITALS: BP 125/94; PULSE 65; RESP 19; TEMP 36.6; O2SAT 100
--- NOTE | 2025-07-28 20:32 | PC.NURSE ---
2000 CONTACTED [facility] AT THIS TIME. TRN SPOKE WITH [employer]. PKT SENT. [facility] PHONE NUMBER [phone], FAX NUMBER [phone]. SPOKE WITH [employer] TRANSFER NURSE.
--- NOTE | 2025-07-28 21:42 | PC.NURSE ---
[address] ALVAREZ WITH [facility]. BED 2675. REPORT TO [phone] [facility] 2
[2025-07-28 22:43] VITALS: BP 141/90; PULSE 72; RESP 16; TEMP 36.8; O2SAT 99
== END 2025-07-28 23:57 | disposition short-term general hospital (02) ==
PROVIDERS: Nurse Practitioner Family; Emergency Provider Emergency Medicine; PCP Family Medicine
DX: G40.A01 Absence epileptic syndrome, not intractable, with status epilepticus (principal); R41.82 Altered mental status, unspecified; R07.9 Chest pain, unspecified; Z75.1 Person awaiting admission to adequate facility elsewhere
CPT/HCPCS: 36415; 51701; 70450; 70496; 70498; 70553; 71045; 80053; 81001; 82140; 83605; 83880; 84484; 85025; 85730; 87077; 87086; 87186; 93005; 96361; 96365; 96375; 99284; A4649; A9577; J0696; J1100; J1953; J7120; Q9967